=== PATIENT | female | born 1945 | race Caucasian/White ===

== ENCOUNTER 2024-12-11 09:04 | Outpatient (AMB) | payer MEDICARE, SELFPAY ==
--- NOTE | 2024-12-11 09:05 | A.OFFVIS_ITS ---
Vital Signs 12/11/24 09:06 Height 5 ft 5 in Weight 202 lb 13.204 oz BMI 33.7 BP 110/70 Blood Pressure Location Lt brachial Position Sitting Pulse 54 Pulse Source Pulse Oximeter Pulse Oximetry (%) 93 Oxygen Delivery Method Room Air Intake Visit Reasons: Cough Drive In Theater Attendant Required: No Accompanied by: Self / Same As Patient Allergies Sulfa (Sulfonamide Antibiotics) Allergy (Unknown, Verified 12/11/24 09:07) other nikunj Allergy (Intermediate, Uncoded 12/11/24 09:07) Itching HPI Comments Details: The patient is here for pulmonary evaluation. The patient is a 79-year-old woman with a chronic cough. She has been coughing now for several months. She does have a history of exposure to tuberculosis as a child in addition to that she has had episodes of bronchitis and bronchopneumonia growing up. She was evaluated [facility]. She was ruled out for active tuberculosis. The patient has had imaging studies. Including a CT scan of the chest that I did appreciate back from 2023. I did personally review the images with evidence of hiatal hernia in addition to that haziness in the bases of the lungs. Also some evidence of chronic bronchitis. More recently in October 2024 the patient did have a chest x-ray which I personally reviewed demonstrating again the esophageal hernia and otherwise no acute disease noted. Blood work she has had as well. Her CBC only significant for increased neutrophil count suggesting the possibility of a smoldering infection. Her cough has gotten better overall. She has been on inhalers and they have been helpful. Overall she is doing okay. She did have an issue with her hip when this started happening. My s uspicion is that she was laying flutter with a hip issue and that was causing increased micro aspirations into the lungs. We did talk about the reflux diet. She will need a barium swallow in addition to that will perform pulmonary function studies. Will have her follow-up then. If the patient has any issues prior to this she will call for an earlier assessment. [facility] Medical History (Updated 12/11/24 @ 17:50 by Dariusz Espinosa MD) Reactive airway disease YRIS (obstructive sleep apnea) Hiatal hernia Chronic cough Social History (Updated 12/11/24 @ 09:13 by Mary Pichardo CMA) Patient Tobacco Use Status: Former Tobacco user Review of Systems Const Reports daytime sleepiness, Denies fever(s) and Reports snoring ENT Reports nasal congestion and Reports post nasal drip Card Denies chest pain Resp Reports chest congestion, Reports cough and Reports snoring GI Reports dyspepsia and Reports heartburn Musc Reports as per HPI Skin/Breast Denies rash Endo Reports no additional complaints Lee/Lymph Reports no additional complaints Physical Exam Vital Signs: Last Vital Signs Pulse 54 12/11/24 09:06 BP 110/70 12/11/24 09:06 Pulse Ox 93 12/11/24 09:06 Oxygen Delivery Method Room Air 12/11/24 09:06 BMI result Body Mass Index 33.7 Assessment & Plan Assessment & Plan (1) Chronic cough: Code(s): R05.3 - Chronic cough Category: Medical (2) Hiatal hernia: Code(s): K44.9 - Diaphragmatic hernia without obstruction or gangrene Category: Medical (3) YRIS (obstructive sleep apnea): Code(s): G47.33 - Obstructive sleep apnea (adult) (pediatric) Category: Medical (4) Reactive airway disease: Code(s): J45.909 - Unspecified asthma, uncomplicated Category: Medical Qualifiers: Asthma severity: moderate Asthma persistence: persistent Asthma complication type: uncomplicated Qualified Code(s): J45.40 - Moderate persistent asthma, uncomplicated Plan continue Advair HFA PFTs Barium swallow consider repeating PSG reflux diet sleep elevated F/U 2-3 months Coding Level of Care Code New Pt Level 4 (28916) Diagnoses Chronic cough R05.3 Hiatal hernia K44.9 YRIS (obstructive sleep apnea) G47.33 Moderate persistent reactive airway disease without complication J45.40 Asthma severity: moderate Asthma persistence: persistent Asthma complication type: uncomplicated Time Spent (min) 40
[2024-12-11 09:06] VITALS: BP 110/70; PULSE 54; O2SAT 93; BMI 33.7
--- OUTSIDE RECORDS SUMMARY | 2024-12-11 09:40 | XMS_ITS | Continuity of Care Document ---
Author Organization [facility] Demarco lt Address [address] [place] [id number]- Care Team Providers Care Agent Broker Name Role Phone Anne Marie LOVELL, Trey Guerrero Primary Care Physician [place] [facility] [place]24 [facility] Adult [address] [place] [address]- Attending Physician: Admtr, Kiarra Encounter Type: Triage Allergies, Adverse Reactions, Alerts Substance Criticality Severity Reaction Reaction Severity Status ibuprofen 1 Active acetaminophen Active mirtazapine urticaria Active sulfa drugs unknown Active NSAIDs due to Cirrhosis of liver Active 1side effect- cirrhosis- not to take Immunizations Given and Recorded Vaccine Date Status Refusal Reason influenza virus vaccine, inactivated 1 06/18/24 Gi lindsey influenza virus vaccine, inactivated 2 04/06/22 Gi lindsey influenza virus vaccine, inactivated 3 06/21/21 Gi lindsey influenza virus vaccine, inactivated 06/24/19 Give n influenza virus vaccine, inactivated 4 07/10/17 Gi lindsey influenza virus vaccine, inactivated 04/17/16 Give n influenza virus vaccine, inactivated 04/07/15 Give n influenza virus vaccine, inactivated 03/31/14 Give n influenza virus vaccine, inactivated 03/19/13 Give n hepatitis B adult vaccine 5 05/21/23 Given hepatitis B adult vaccine 04/21/19 Given hepatitis B adult vaccine 03/18/19 Given Hepatitis A Adult Vaccine 6 05/21/23 Given Hepatitis A Adult Vaccine 03/18/19 Given [id number] 12y+ bivalent booster vax 09/22/22 Recorded SARS-CoV-2 mRNA ([id number]) vax 09/28/21 Given SARS-CoV-2 (COVID-19) mRNA-1273 vaccine 05/20/21 R ecorded tetanus/diphtheria/pertussis, acel(Tdap) 12/01/20 Given SARS-CoV-2 (COVID-19) Ad26 vaccine 10/06/20 Record ed pneumococcal 13-valent vaccine 03/10/20 Recorded pneumococcal 13-valent vaccine 04/07/15 Given Influenza Virus Vaccine (oldterm) 03/10/20 Recorde d Influenza Virus Vaccine (oldterm) 07/26/09 Given Influenza Virus Vaccine (oldterm) 7 04/22/08 Given tetanus-diphtheria toxoids (Td) 03/08/18 Given Fluarix (oldterm) 04/04/12 Given Fluarix (oldterm) 04/06/11 Given Zostavax (oldterm) 12/20/11 Given pneumococcal 23-valent vaccine 04/06/11 Given Tet/Diphth/Acel, Pertussis (oldterm) 12/31/07 Give n Tetanus Toxoid Vaccine (oldterm) 07/02/97 Given 1Result Comment: [facility]:[id number] Screening checklist reviewed with patient. Negative for any contraindications. 2Result Comment: [facility]-[id number] 3Result Comment: [facility]-[id number] 4Result Comment: [07/10/2017] [facility]: [id number] 5Result Comment: LOWER VACCINE SITE ON LEFT ARM 6Result Comment: UPPER VACCINE STIE ON LEFT ARM 7Admin Note: declined Medications Aerochamber See Instructions, # 1 each, Maintenance, Use as directed with albuterol MDI Dx: COPD., 11/03/24 8:19:00 PM EDT, Supply, 165, cm, 10/31/24 8:41:00 EDT, Height, 92, kg, 10/31/24 8:41:00 EDT, Dry Weight Start Date: 11/03/24 Status: Ordered Quantity: 1.0 Unit: each Repeat number: 1 alendronate 70 mg oral tablet 1 tablet, By Mouth, Every week, # 12 tablet, 3 Refills, Maintenance, 08/15/24 4:29:00 PM [facility], [id number], 166, cm, 08/14/24 15:38:00 EST, Height, 99.5, kg, 10/03/23 16:18:00 EDT, Dry Weight Start Date: 08/15/24 Status: Ordered Quantity: 12.0 Unit: tablet Repeat number: 4 aspirin 81 mg oral delayed release tablet 81 mg, 1, tablet, By Mouth, Daily, # 30 tablet, Refills 0, Tot. Refills 0, Maintenance, 10/31/24 12:22:00 PM EDT, Do Not Route, Partial fill upon patient request if the prescription is for a schedule II opioid drug. Start Date: 10/31/24 Status: Ordered Quantity: 30.0 Unit: tablet Repeat number: 1 atorvastatin 80 mg oral tablet 1 tablet, By Mouth, Daily, # 90 tablet, 3 Refills, Maintenance, 03/22/24 7:27:00 AM EDT, [facility], 166, cm, 03/14/24 9:04:00 EDT, Height, 99.5, kg, 10/03/23 16:18:00 EDT, Dry Weight Start Date: 03/22/24 Status: Ordered Quantity: 90.0 Unit: tablet Repeat number: 4 buPROPion 300 mg/24 hours (XL) oral tablet, extended release 1 tablet, By Mouth, Daily, # 90 tablet, 3 Refills, Maintenance, 03/22/24 7:27:00 AM EDT, [facility], 166, cm, 03/14/24 9:04:00 EDT, Height, 99.5, kg, 10/03/23 16:18:00 EDT, Dry Weight Start Date: 03/22/24 Status: Ordered Quantity: 90.0 Unit: tablet Repeat number: 4 fluticasone-salmeterol 115 mcg-21 mcg inhalation aerosol with adapter 2 inhalation, Inhalation, 2 times a day, rinse mouth and throat after use, # 8 Gm, 0 Refills, Maintenance, 10/31/24 12:24:00 PM EDT, Aerosol, Partial fill upon patient request if the prescription is for a schedule II opioid drug. Start Date: 10/31/24 Status: Ordered Quantity: 8.0 Unit: g Repeat number: 1 gabapentin 100 mg oral capsule 100 mg, 1, capsule, By Mouth, 3 times a day, # 90 capsule, Refills 5, Maintenance, 10/31/24 12:35:00 AM EDT, Partial fill upon patient request if the prescription is for a schedule II opioid drug. Start Date: 10/31/24 Status: Ordered Quantity: 90.0 Unit: capsule Repeat number: 1 Metoprolol Succinate ER 25 mg oral tablet, extended release 1, tablet, By Mouth, Daily, # 90 tablet, Refills 3, Tot. Refills 3, Maintenance, 03/22/24 7:27:00 AMEDT, Route to Pharmacy Electronically, [facility], 166, cm, 03/14/24 9:04:00 EDT, Height, 99.5, kg, 10/03/23 16:18:00 EDT, Dry Weight Start Date: 03/22/24 Status: Ordered Quantity: 90.0 Unit: tablet Repeat number: 4 QUEtiapine 25 mg oral tablet 25 mg, 1, tablet, By Mouth, Daily, # 30 tablet, Refills 0, Tot. Refills 0, Maintenance, 10/31/24 12:24:00 PM EDT, Do Not Route, Partial fill upon patient request if the prescription is for a schedule II opioid drug. Start Date: 10/31/24 Status: Ordered Quantity: 30.0 Unit: tablet Repeat number: 1 sertraline 50 mg oral tablet 1 tablet = 50 mg, By Mouth, Daily, # 90 tablet, 3 Refills, Maintenance, 08/14/24 4:19:00 PM EST, Tablet, [facility], Partial fill upon patient request if the prescription is for a schedule II opioid drug., 166, cm, 08/14/24 15:38:00 EST, Height, 99.5, kg, 10/03/23 16:18:00 EDT, Dry Weight Start Date: 08/14/24 Status: Ordered Quantity: 90.0 Unit: tablet Repeat number: 4 Problem List Condition Confirmation Course Effective Dates Status H ealth Status Informant Abdominal pain Confirmed Active Distal paresthesia Confirmed 04/06/22 Active Alkaline phosphatase raised/correcting vit d/normal 5 prime nuclt Confirmed Active Allergic rhinitis Confirmed 12/31/07 Active Loss of memory Confirmed Active Body mass index 30+ - obesity Confirmed Active Bronchiectasis Confirmed Active COPD (chronic obstructive pulmonary disease) Confirmed Active COPD (chronic obstructive pulmonary disease) Confirmed Active Cirrhosis us liver jun 2020 Confirmed 03/17/19 Active 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 Left ovarian cyst sonogram Confirmed 09/13/18 Active Cardiac LV ejection fraction 40-45% 2020 echo/ICD 2021 Confirmed 08/20/19 Active Oral lesion Confirmed Active Ex-cigarette smoker 2 Confirmed Active Long-term exposure involving bird droppings Confirmed Active Fall at home Confirmed Active Granuloma annulare 3 Confirmed Active H/O systemic steroid therapy Confirmed Active Bilateral hip pain Confirmed Active S/P right inguinal hernia repair rt Confirmed 10/13/20 Active Hx of total knee replacement bilteral 4, 5 Confirmed 06/24/12 Active Hyperhidrosis face;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 surgery Confirmed 05/21/07 Active HTN (hypertension) Confirmed Active Dermatitis Confirmed Active Left bundle-branch block Confirmed Active Lumbar spondylosis L5-S1 MRI 2018 11 Confirmed Active Adnexal mass Confirmed Active MIGRAINE 7 Confirmed Active Moderate major depression refer IBH Confirmed Active Obese class I Confirmed Active Obstructive sleep apnea 10.8 ahi Confirmed 12/24/19 Active OA (osteoarthritis) of hip right/ortho/injection 2021 Confirmed Active Osteopenia high frax alendronate Confirmed Active Plantar fascitis Confirmed Active Post-nasal drip Confirmed Active Moderate recurrent major depression Confirmed Active Thrombocytopenia Confirmed Active TMJ syndrome Confirmed Active Shakes Confirmed Active Vitamin D Deficiency Confirmed Active 1normal hep ABC,ferritin,iron 2Agrees to lung cancer screening with CAT scan low-dose 3DR linda 4sx planned 5djdmadvanced;chronic nsaids 6xray 75 years per patient Procedures Procedure Date Related Diagnosis Body Site Status Radiologic examination, spin e, lumbosacral; 2 or 3 views 1 12/24/12 Comp leted Dual-energy X-ray absorptiom etry (DXA), bone density study, 1 or more sites; axial skeleton (eg, hips, pelvis, spine) 2, 3 06/14/12 Completed Electrocardiogram, routine E CG with at least 12 leads; with interpretation and report 4 05/27/12 Completed 1severe spondyl;osis,djd,disc changes 2frax 18/1.7 neg 1.8 hip 3frax 87/0.7 4Ventricular Rate: 68 BPM Atrial Rate: 68 BPM P-R Interval: 170 ms QRS Duration: 146 ms Q-T Interval: 418 ms QTC Calculation(Bezet): 444 ms P [place]: 50 degrees R [place]: 33 degrees T [place]: 101 degrees Normal sinus rhythm Left bundle branch block Abnormal ECG When compared with ECG of 17-NOV-2010 11:54, Left bundle branch block is now Present Confirmed by CÉSAR MEYERS MD ([id number]) on 05/28/2012 10:38:47 AM Social History Social History Type Response Smoking Status Former smoker; Type: Cigarettes; Other: quit Jul 2016; Number of years: 35; Total pack years: 25; Started at age: 26; entered on: 06/11/17 Sex Sex Representation Female (finding) Implantable Device List Procedure Provider Procedure Date Device Type Site Repair Hernia Ventral Laparoscopic Rustam Blackburn MD 10/13/20 Unknown Ventricle Device Identifier Serial Number Lot or Batch Number Manufacturing Date Expiration Date Distinct Identification Code MRI Safety Implantable Status Assigning Authority Unknown [id number] Unknown 10/13/20 Unknown Unknown Active Unknown EKG study * Event Display: EKG Authored Date: * Event Display: EKG Authored Date: * Event Display: EKG Authored Date: Laboratory * Event Display: Laboratory Result Scanned Authored Date: * Event Display: Laboratory Result Scanned Authored Date: Cardiology Outpatient Note * Romelia Smith: PERFORM Event Display: Cardiology Note Office Authored Date: Radiology * Event Display: IR Special Procedures, Non-BH Authored Date: * Event Display: Radiology Result Scanned Authored Date: * Event Display: Radiology Result Scanned Authored Date: * Lisa Fowler: PERFORM Event Display: Radiology Results Scanned Authored Date: Patient Care team information Care Team Personnel Name: Janneth Car RN Position: [facility] RN Member Role: Primary Care Nurse Name: Teri Bourgeois NP Position: [facility] PCO Associate Professional Member Role: Lifetime Consulting Provider Address: [address] [place] [address] Telecom: Name: Lida Plata RN Position: [facility] RN Member Role: Primary Care Nurse Name: Lauren Delgado RN Position: [facility] RN Member Role: Primary Care Nurse Name: Merry Pardo RN Position: [facility] RN Member Role: Primary Care Nurse Name: Trey Kenney MD Position: [facility] Physician - Primary Care Member Role: PCP Address: [address] [place] [address]- Telecom: Name: Manny Caceres RN Position: [facility] RN Member Role: Primary Care Nurse Name: Mine Cabrera RN Position: [facility] SN RN Member Role: Primary Care Nurse Name: Nuria Chung RN Position: [facility] RN Member Role: Primary Care Nurse Name: Serena Marley RN Position: [facility] RN Member Role: Primary Care Nurse Name: Rama Linda RN Position: [facility] SN RN Member Role: Primary Care Nurse Name: Antony Olivia RN Position: [facility] RN Member Role: Primary Care Nurse Name: Marilou Mcnamara RN Position: [facility] RN Member Role: Primary Care Nurse Care Team Related Persons Name: STAN NUNO Name: ELLEN BOLTON Insurance Providers Guarantor name: JEFERSON GAN Cyphoma Plan Information #: 1 Payer: MEDICARE B Payer Identifier: Member Number: [id number] Group Number: Subscriber Identifier: [id number] Relationship to Subscriber: self Coverage Type: NA Coverage Verification Date: NA Telecom: NA Address: Health Plan Information #: 2 Payer: MEDEX SECONDARY ONLY Payer Identifier: Member Number: [id number] Group Number: Subscriber Identifier: [id number] Relationship to Subscriber: self Coverage Type: Medicare Other Coverage Verification Date: NA Telecom: NA Address:
== END 2024-12-11 09:40 | disposition home or self-care (01) ==
PROVIDERS: PCP Family Medicine; Referring Provider Family Medicine; Visit Provider Hospitalist
DX: R05.3 Chronic cough (principal); K44.9 Diaphragmatic hernia without obstruction or gangrene; G47.33 Obstructive sleep apnea (adult) (pediatric); J45.40 Moderate persistent asthma, uncomplicated
CPT/HCPCS: 99204

== ENCOUNTER → 2024-12-11 09:04 | Outpatient (BNVA) | payer MEDICARE, SELFPAY | PROVIDERS: PCP Family Medicine; Referring Provider Family Medicine; Visit Provider Hospitalist | DX: R05.3 Chronic cough (principal); J45.40 Moderate persistent asthma, uncomplicated; K44.9 Diaphragmatic hernia without obstruction or gangrene; G47.33 Obstructive sleep apnea (adult) (pediatric) | CPT/HCPCS: 99202 ==

== ENCOUNTER 2025-01-16 12:57 | Outpatient (REF) | payer MEDICARE, SELFPAY ==
--- OUTSIDE RECORDS SUMMARY | 2025-01-14 23:59 | XMS_ITS | Continuity of Care Document ---
Author Organization [facility] Demarco lt Address [address] [place] [address]- Care Team Providers Care Laborer Cheesemaking Name Role Phone Trey Kenney MD Primary Care Physician [phone] [place] [facility] [place]25 [facility] Adult [address] [place] [address]- Attending Physician: Trey Kenney MD Encounter Type: Pre Office Visit Allergies, Adverse Reactions, Alerts Substance Criticality Severity [...] Given Hepatitis A Adult Vaccine 03/18/19 Given [id number] 12y+ bivalent booster vax 09/22/22 Recorded SARS-CoV-2 mRNA (zavrqym-zxjk-kvfeb) vax 09/28/21 Given SARS-CoV-2 (COVID-19) mRNA-1273 vaccine [...] Toxoid Vaccine (oldterm) 07/02/97 Given 1Result Comment: [facility]:[id number] Screening checklist reviewed with patient. Negative for any contraindications. 2Result Comment: [facility]-[id number] 3Result Comment: [facility]-[id number] 4Result Comment: [07/10/2017] [facility]: [id number] 5Result Comment: LOWER VACCINE SITE ON LEFT ARM 6Result Comment: UPPER VACCINE STIE ON LEFT ARM 7Admin Note: declined Medications Advair HFA 115 mcg / 21 mcg 2 inhalation, Inhalation, 2 times a day, rinse mouth and throat after use, # 8 Gm, 3 Refills, Maintenance, 12/25/24 1:51:00 PM EDT, Aerosol, [facility] #[id number], Partial fill upon patient request if the prescription is for a schedule II opioid drug., 2 inhalation Inhalation 2 times a day,Instr:rinse mouth and throat after use, 165, cm, 12/22/24 9:10:00 EDT, Height, 92, kg, 10/31/24 8:41:00EDT, Dry Weight Start Date: 12/25/24 Status: Ordered Quantity: 8.0 Unit: g Repeat number: 4 Albuterol (Eqv-Ventolin HFA) 90 mcg/inh inhalation aerosol 2 inhalation = 180 mcg, Inhalation, Every 4 hours, PRN as needed for shortness of breath or wheezing, # 6.7 Gm, 5 Refills, Maintenance, 12/22/24 9:49:00 AM EDT, Aerosol, [id number], Partial fill upon patient request if the prescription is for a schedule II opioid drug., 2 inhalationInhalation Every 4 hours,PRN:as needed for shortness of breath or wheezing, 165, cm, 12/22/24 9:10:00 EDT, Height, 92, kg, 10/31/24 8:41:00 EDT, Dry Weight Start Date: 12/22/24 Status: Ordered Quantity: 6.7 Unit: g Repeat number: 6 alendronate 70 mg oral tablet 1 tablet, By Mouth, Every week, # 12 tablet, 3 Refills, Maintenance, 08/15/24 4:29:00 PM EST, [facility] #[id number], 166, cm, 08/14/24 15:38:00 EST, Height, 99.5, [...] Quantity: 90.0 Unit: tablet Repeat number: 4 Breo Ellipta 100 mcg-25 mcg/inh inhalation powder 1 inhalation, Inhalation, Daily, 0 Refills, Maintenance, 12/22/24 9:09:00 AM EDT, Partial fill upon patient request if the prescription is for a schedule II opioid drug. Start Date: 12/22/24 Status: Ordered Repeat number: 1 buPROPion 300 mg/24 hours (XL) oral tablet, [...] and throat after use, # 8 Gm, 3 Refills, Maintenance, 12/22/24 9:46:00 AM EDT, Aerosol, [facility] #[id number], Partial fill upon patient request if the prescription is for a schedule II opioid drug., 2 inhalation Inhalation 2 times a day,Instr:rinse mouth and throat after use, 165, cm, 12/22/24 9:10:00 EDT, Height, 92, kg, 10/31/24 8:41:00EDT, Dry Weight Start Date: 12/22/24 Status: Ordered Quantity: 8.0 Unit: g Repeat number: 4 gabapentin 100 mg oral capsule 100 mg, [...] Confirmed Active Cirrhosis us liver jun 2020 1 Confirmed 03/17/19 Active Craniofacial hyperhidrosis Confirmed 04/25/19 [...] 5djdmadvanced;chronic nsaids 6xray 75 years per patient Social History Social History Type Response Smoking [...] MRI Safety Implantable Status Assigning Authority Unknown [id number] Unknown 10/13/20 Unknown Unknown Active Unknown Patient Care team information Care Team Personnel Name: Janneth Car RN Position: [facility] SN RN Member Role: Primary Care Nurse Name: Teri Bourgeois NP Position: [facility] PCO Associate Professional Member Role: Lifetime Consulting Provider Address: [address] [place] [address] [facility] Telecom: Name: Lida Plata RN Position: [facility] SN RN Member Role: Primary Care Nurse Name: Lauren Delgado RN Position: [facility] OB RN Member Role: Primary Care Nurse Name: Merry Pardo RN Position: [facility] RN Member Role: Primary Care Nurse Name: Trey Kenney MD Position: [facility] Physician - Primary Care Member Role: PCP Address: [address] [place] [address] [facility] Telecom: Name: Manny Caceres RN Position: [facility] RN Member Role: Primary Care Nurse Name: Mine Cabrera RN Position: [facility] SN RN Member Role: Primary Care Nurse Name: Nuria Chung RN Position: [facility] RN Member Role: Primary Care Nurse Name: Serena Marley RN Position: [facility] RN Member Role: Primary Care Nurse Name: Rama Linda RN Position: [facility] SN RN Member Role: Primary Care Nurse Name: Antony Olivia RN Position: [facility] RN Member Role: Primary Care Nurse Name: Marilou Mcnamara RN Position: [facility] RN Member Role: Primary Care Nurse Care Team Related Persons Name: STAN NUNO Name: ELLEN BOLTON Insurance Providers Guarantor name: JEFERSON GAN WARSTUFF Plan Information #: 1 Payer: MEDICARE B Payer Identifier: LUBNA Member Number: [id number] Group Number: Subscriber Identifier: [id number] Relationship to Subscriber: self Coverage Type: NA Coverage Verification Date: Telecom: NA Address: Health Plan Information #: 2 Payer: MEDEX SECONDARY ONLY Payer Identifier: LUBNA Member Number: [id number] Group Number: Subscriber Identifier: [id number] Relationship to Subscriber: self Coverage Type: Medicare Other Coverage Verification Date: Telecom: Address:
[2025-01-16 09:10] VITALS: PULSE 73; RESP 16; O2SAT 95
--- OUTSIDE RECORDS SUMMARY | 2025-01-16 12:59 | XMS_ITS | Encounter Summary ---
Author Organization [facility] Address [address] [place] [phone] Phone Care Team Providers Care Tanbark Laborer Name Role Phone Trey Kenney MD Primary Care Provider + Encounter Details Date Type Department Care Team (Late st Contact Info) Description 06/13/2024 Procedure Pass [facility], Ct Scan - [address] [address] Social History Tobacco Use Types Packs/Day Years Used Date Smoking Tobacco: Former Smokeless Tobacco: Never Alcohol Use Standard Drinks/Week Comments Yes 0 (1 standard drink = 0.6 oz pur e alcohol) rare Education Answer Date Recorded Are you interested in more education? Not on ashtyn e 10/27/2022 Are you concerned about learning? Not on file 10/27/2022 No 10/27/2022 No 10/27/2022 Digital Access Answer Date Recorded No 11/28/2022 No 11/28/2022 Reliable internet access at home? Not on file 11/28/2022 Device with a working camera? Not on file Intimate Partner Violence Answer Date R ecorded Are you denied basic needs s uch as food, clothing, or medical care? No 06/13/2024 In the past 12 months have y ou been in a relationship with a person who hurts, threatens, or tries to control you? No 06/13/2024 Are you denied basic needs s uch as food, clothing, or medical care? No 06/13/2024 In the past 12 months have y ou been in a relationship with a person who hurts, threatens, or tries to control you? No 06/13/2024 Comments Unknown Sex and Gender Information Value Date Recorded Sex Assigned at Not on file Legal Sex Female 9:43 AM EDT Gender Identity Not on file Sexual Orientation Not on file documented as of this encounter Functional Status * Calculated C-SSRS Risk Score (Lifetime/Recent) Answer Date of Assessment Author No Risk Indicated 06/13/2024 4:24 PM [place]osin [place] RN * Amelia Suicide Severity Rating Scale (Screener/Recent Self-Report) Question Answer Date of Assessment Author 1. Wish to be (Past 1 Month) No 024 4:24 PM [place] RN 2. Non-Specific Active Suici vivi Thoughts (Past 1 Month) No 06/13/2024 4:24 PM [place] RN 6. Suicidal Behavior (Lifetime) No 4:24 PM [place] RN documented as of this encounter Plan of Treatment Not on file documented as of this encounter Visit Diagnoses Not on filedocumented in this encounter Care Teams Tanbark Laborer Relationship Specialty Start Date End Date Trey Kenney MD [address] [place] [phone] PCP - General Family Medicine 06/13/24 documented as of this encounter Additional Source Comments The information contained in this document represents components of the legal health record. It is not the complete legal health record.[facility]
--- OUTSIDE RECORDS SUMMARY | 2025-01-16 12:59 | XMS_ITS | Clinical Summary ---
Author Organization [address] [facility] Address [address] [place] [address] Phone Care Team Providers Care Ehs Specialist Name Role Phone Kailee Kessler MD Primary Care Provider [phone] Social History Tobacco Use Types Packs/Day Years Used Date Smoking Tobacco: Never Assessed Comments Unknown Sex and Gender Information Value Date Recorded Sex Assigned at Female 09/01/2024 8:20 AM EST Legal Sex Female 11:39 AM EDT Gender Identity Female 09/01/2024 8:20 AM EST Sexual Orientation Straight 09/01/2024 8: 20 AM EST Plan of Treatment Health Maintenance Due Date Last Done Comments DTaP,Tdap,and Td Vaccines (1 - Tdap) 1965 Pneumococcal Vaccine: 50+ Ye ars (1 of 1 - PCV) 1996 Zoster Vaccines (1 of 2) 1996 RSV Immunization Adult Patie nts (1 - 1-dose 75+ series) 2021 COVID-19 Vaccine ( - 2023-2 5 season) 2024 Depression Screening 04/11/2024 Falls Risk Assessment 04/11/2024 Hepatitis C Screening 04/11/2024 Medicare Annual Wellness Visit 04/11/2024 Osteoporosis Screening (Bone Density Screening) 04/11/2024 Social Influencers of Health Screening 04/11/2024 Influenza Vaccine (#1) 2025 HIB Vaccines Aged Out No longer eligi ble based on patient's age to complete this topic HPV Vaccines Aged Out No longer eligi ble based on patient's age to complete this topic Hepatitis A Vaccines Aged Out No long er eligible based on patient's age to complete this topic Hepatitis B Vaccines Aged Out No long er eligible based on patient's age to complete this topic IPV Vaccines Aged Out No longer eligi ble based on patient's age to complete this topic MMR Vaccines Aged Out No longer eligi ble based on patient's age to complete this topic Meningococcal ACWY Vaccine Aged Out N o longer eligible based on patient's age to complete this topic Meningococcal B Vaccine Aged Out No l onger eligible based on patient's age to complete this topic RSV Immunization Patients Un edward 20 months Aged Out No longer eligible b ased on patient's age to complete this topic Varicella Vaccines Aged Out No longer eligible based on patient's age to complete this topic Insurance MEDICARE [facility] Care Teams Ehs Specialist Relationship Specialty Start Date End Date Kailee Kessler MD [address] [place] [address] PCP - General 05/01/1999
--- NOTE | 2025-01-16 13:43 | PFT_ITS ---
Flows: FEV1: 111 % of predicted at 2.25 L FVC: 124 % of predicted at 3.31 L FEV1/FVC: 68 % Bronchodilator response: Absent Volumes: Total lung capacity: 106 % of predicted at 5.34 L Residual volume: 83 % of predicted at 1.84 L Slow vital capacity: 129 % of predicted at 3.50 L Expiratory reserve volume: 76 % of predicted at 0.51 L Diffusion capacity: Normal Impression: Mild obstructive ventilatory defect with no bronchodilator response. MTDD
== END 2025-01-16 12:58 | disposition home or self-care (01) ==
LOC: HO.RESP 12:57
PROVIDERS: PCP Family Medicine; Visit Provider Hospitalist
DX: R05.3 Chronic cough (principal)
CPT/HCPCS: 94010; 94640; 94727; 94729

== ENCOUNTER → 2025-01-16 13:43 | Outpatient (BNV) | payer MEDICARE, SELFPAY | PROVIDERS: PCP Family Medicine; Visit Provider Internal Medicine Pulmonary Disease | DX: J44.9 Chronic obstructive pulmonary disease, unspecified (principal) | CPT/HCPCS: 94060; 94727; 94729 ==

== ENCOUNTER 2025-03-04 10:14 | Outpatient (AMB) | payer MEDICARE, SELFPAY ==
[2025-03-04 10:17] VITALS: BP 130/68; PULSE 50; O2SAT 95; BMI 33.7
--- NOTE | 2025-03-04 10:17 | A.OFFVIS_ITS ---
Vital Signs 03/04/25 10:17 Height 5 ft 5 in Weight 202 lb 13.204 oz BMI 33.7 BP 130/68 Blood Pressure Location Lt brachial Position Sitting Pulse 50 Pulse Source Pulse Oximeter Pulse Oximetry (%) 95 Oxygen Delivery Method Room Air Intake Visit Reasons: Cough Accompanied by: Self / Same As Patient Allergies Sulfa (Sulfonamide Antibiotics) Allergy (Unknown, Verified 03/04/25 10:26) other nikunj Allergy (Intermediate, Uncoded 12/11/24 09:07) Itching HPI Comments Details: The patient is a 79-year-old woman with a chronic cough. She has been coughing now for several months. She does have a history of exposure to tuberculosis as a child in addition to that she has had episodes of bronchitis and bronchopneumonia growing up. She was evaluated by [facility] believe [facility]. She was ruled out for active tuberculosis. The patient has had imaging studies. Including a CT scan of the chest that I did appreciate back from 2023. I did personally review the images with evidence of hiatal hernia in addition to that haziness in the bases of the lungs. Also some evidence of chronic bronchitis. More recently in October 2024 the patient did have a chest x-ray which I personally reviewed demonstrating again the esophageal hernia and otherwise no acute disease noted. Blood work she has had as well. Her CBC only significant for increased neutrophil count suggesting the possibility of a smoldering infection. Her cough has gotten better overall. She has been on inhalers and they have been helpful. Overall she is doing okay. She did have an issue with her hip when this started happening. My suspicion is that she was laying flutter with a hip issue and that was causing increased micro aspirations into the lungs. We did talk about the reflux diet. She will need a barium swallow in addition to that will perform pulmonary function studies. Will have her follow-up then. If the patient has any issues prior to this she will call for an earlier assessment. 03/04/2025 the patient is here for pulmonary follow-up visit. Overall the patient has been doing fair. Apparently she has been having falls. She recently fell and she went to [facility] where she was found to have rib fractures and also healing pelvic fractures. She has been very unsteady on her feet. She is not sure what is DuoNeb. She is having significant pleuritic pain. I will now currently on Dilaudid for pain control. She will try the Lidoderm patches well. She did have a CT scan at [facility] which I personally reviewed noting the rib fractures but no active pulmonary disease noted. The patient did undergo pulmonary function studies which I personally reviewed. Her PFTs do demonstrate a mild obstruction. Therefore she can continue on the Advair for now. The patient also has a rescue inhaler as needed. She also has likely some degree of sleep apnea but the patient has tried already and failed CPAP and she does not want to do what at this time. We did look at her meds and she is taking Neurontin. I did encourage her to stop taking the dose of during the daytime because it seems like it is causing it to be unsteady on her feet and drowsy. She can take the Neurontin just at nighttime for now until she follows up with the primary care. [facility] Medical History (Updated 03/04/25 @ 22:32 by Dariusz Espinosa MD) Rib fractures COPD (chronic obstructive pulmonary disease) Reactive airway disease YRIS (obstructive sleep apnea) Hiatal hernia Chronic cough Social History Patient Tobacco Use Status: Former Tobacco user Review of Systems Const Reports daytime sleepiness, Denies fever(s) and Reports snoring ENT Reports nasal congestion and Reports post nasal drip Card Reports chest pain Resp Reports chest congestion, Reports cough, Reports pain on inspiration, Reports pain with cough and Reports snoring GI Reports dyspepsia and Reports heartburn Musc Reports as per HPI, Reports abnormal gait, Reports myalgias, Reports arthralgias and Reports stiffness Skin/Breast Denies rash Neuro Reports abnormal gait Endo Reports no additional complaints Lee/Lymph Reports no additional complaints Physical Exam Vital Signs: Last Vital Signs Pulse 50 03/04/25 10:17 BP 130/68 03/04/25 10:17 Pulse Ox 95 03/04/25 10:17 Oxygen Delivery Method Room Air 03/04/25 10:17 BMI result Body Mass Index 33.7 Const General: comfortable and tired appearing HEENT Head: Yes normocephalic Eyes General: appearance normal, both eyes and all related structures Neck Neck: Yes supple Chest Chest palpation & inspection: tenderness rib Resp Effort & Inspection: normal respiratory effort Auscultation: diminished lung sounds Cardio Heart sounds: S1 normal heart sound present and S2 normal heart sound present GI Palpation (GI): Soft to palpation Skin General skin exam: no rashes or lesions noted Extrem General: Yes no clubbing, cyanosis or edema Assessment & Plan Assessment & Plan (1) Chronic cough: Code(s): R05.3 - Chronic cough Category: Medical (2) Hiatal hernia: Code(s): K44.9 - Diaphragmatic hernia without obstruction or gangrene Category: Medical (3) YRIS (obstructive sleep apnea): Code(s): G47.33 - Obstructive sleep apnea (adult) (pediatric) Category: Medical (4) Reactive airway disease: Code(s): J45.909 - Unspecified asthma, uncomplicated Category: Medical Qualifiers: Asthma complication type: uncomplicated Asthma persistence: persistent Asthma severity: moderate Qualified Code(s): J45.40 - Moderate persistent asthma, uncomplicated (5) Rib fractures: Code(s): S22.49XA - Multiple fractures of ribs, unspecified side, initial encounter for closed fracture Category: Medical Qualifiers: Encounter type: initial encounter Fracture type: closed Laterality: right Qualified Code(s): S22.41XA - Multiple fractures of ribs, right side, initial encounter for closed fracture (6) COPD (chronic obstructive pulmonary disease): Code(s): J44.9 - Chronic obstructive pulmonary disease, unspecified Category: Medical Qualifiers: COPD type: chronic bronchitis Chronic bronchitis type: simple Qualified Code(s): J41.0 - Simple chronic bronchitis Plan continue Advair HFA Barium swallow Overnight oximetry on RA reflux diet sleep elevated should take gabapentin only at night for now, unsteady and groggy on her feet ISS F/U 2-3 months Orders: Orders Overnight Pulse Oximetry Today J44.9 - Chronic obstructive pulmonary disease, unspecified Coding Level of Care Code Est Pt Level 4 (52232) Diagnoses Chronic cough R05.3 Hiatal hernia K44.9 YRIS (obstructive sleep apnea) G47.33 Moderate persistent reactive airway disease without complication J45.40 Asthma complication type: uncomplicated Asthma persistence: persistent Asthma severity: moderate Closed fracture of multiple ribs of right side, initial encounter S22.41XA Encounter type: initial encounter Fracture type: closed Laterality: right Simple chronic bronchitis J41.0 COPD type: chronic bronchitis Chronic bronchitis type: simple Time Spent (min) 17
--- OUTSIDE RECORDS SUMMARY | 2025-03-04 11:45 | XMS_ITS | Clinical Summary ---
Author Organization [facility] Address [address] [facility] [address] [place] [address] Phone Care Team Providers Care Transfer Engineer Name Role Phone Trey Kenney MD Primary Care Provider + Allergies Active Allergy Reactions Criticality Noted Date Comments Mirtazapine Rash Low 04/09/2019 Sulfa (Sulfonamide Antibiotics) Unknown 03/2019 Medications FLUoxetine (PROZAC) 20 MG capsule Take 20 mg by mouth daily. Active BUPROPION HCL ORAL Take 300 mg by mouth. Active oxybutynin (DITROPAN-XL) 10 MG 24 hr tablet Take 10 mg by mouth daily. Active alendronate (FOSAMAX) 70 MG tablet Take 70 mg by mouth every 7 days. Take in the morning with a full glass of water, on an empty stomach, and do not take anything else by mouth or lie down for the next 30 min. Active methocarbamol (ROBAXIN) 500 MG tablet Take 500 mg by mouth 4 (four) times a day. Active benzonatate (TESSALON) 100 MG capsule Take 100 mg by mouth 3 (three) times a day as needed for cough. Active predniSONE (DELTASONE) 20 MG tablet Take 20 mg by mouth daily with breakfast. Active crisaborole (EUCRISA) 2 % ointment Apply topically 2 (two) times a day. 100 g 1 9 Active Social History Tobacco Use Types Packs/Day Years [...] on file Sexual Orientation Not on file Last Filed Vital Signs Vital Sign Reading Time Taken Comments Blood Pressure 145/82 06/13/2024 6:35 PM EST Pulse 61 06/13/2024 6:35 PM EST Temperature 36.5 C (97.7 F) 06/13/2024 6:35 PM EST Respiratory Rate 16 06/13/2024 6:35 PM EST Oxygen Saturation 98% 06/13/2024 6:35 PM EST Inhaled Oxygen Concentration - - Weight 90.7 kg (200 lb) 06/13/2024 4:21 PM EST Height 165.1 cm (5' 5 ) 06/13/2024 4:21 PM EST Body Mass Index 33.28 06/13/2024 4:21 PM EST Plan of Treatment Health Maintenance Due Date Last Done Comments Adult Td,Tdap Booster 1946 LIPID PANEL 1946 DEPRESSION SCREENING 1958 SMOKING Hx and SMOKELESS TOB ACCO SCREENING 1959 HEPATITIS C SCREENING 1964 ZOSTER VACCINES (1 of 2) 1996 OSTEOPOROSIS SCREENING INITI AL (ONE-TIME) 2011 RSV VACCINE (1 - 1-dose 75+ series) 2021 PNEUMOCOCCAL VACCINES (50+ y ears) (2 of 2 - PPSV23) 03/10/2021 03/10/2020 INFLUENZA VACCINE (#1) 2025 03/10/2020 COVID-19 VACCINE (2 - 2024-2 6 season) 2025 10/06/2020 HEPATITIS A VACCINES Aged Out No long er eligible based on patient's age to complete this topic HIB VACCINES Aged Out No longer eligi ble based on patient's age to complete this topic MENINGOCOCCAL VACCINES (ACWY) Aged Out No longer eligible based on patient's age to complete this topic MENINGOCOCCAL VACCINES (B) Aged Out N o longer eligible based on patient's age to complete this topic Medical Devices Not on file Insurance MEDICARE PART A & B [employer] [place] [id number] MEDICARE PART A & B [employer] [place] [address] MEDICARE PART A & B [employer] MED[employer] SUPPLEMENT MEDICARE PART A & B [employer] MEDEX SUPPLEMENT MEDICARE PART A & B [employer] MEDEX SUPPLEMENT MEDICARE PART A & B [facility] MEDEX SUPPLEMENT MEDICARE PART A & B [employer] MEDEX SUPPLEMENT [facility] [place] [id number] MEDICARE PART A & B [employer] [place] [address] MEDICARE PART A & B [employer] SUPPLEMENT Care Teams Transfer Engineer Relationship Specialty Start Date End Date Trey Kenney MD [address] [place] [phone] PCP - General Family Medicine 06/13/24 Additional Source Comments The information contained in this document represents components of the legal health record. It is not the complete legal health record.[facility]
--- OUTSIDE RECORDS SUMMARY | 2025-03-04 11:45 | XMS_ITS | Encounter Summary ---
Author Organization [facility] Address [address] [place] [address] Care Team Providers Care Ornamental Brick Installer Name Role Phone Kailee Kessler MD Primary Care Provider [phone] Encounter Details Date Type Department Care Team (Late st Contact Info) Description 09/03/2024 Lab Requisition [facility] - Main Lab [address] [facility] [place] [address] Neelima Aldana MD [address] [place] [address] Encounter for other general examination Social History Tobacco Use Types Packs/Day Years Used Date Smoking Tobacco: Never Assessed Comments Unknown Sex and Gender Information Value Date Recorded Sex Assigned at Female 09/01/2024 8:20 AM EST Legal Sex Female 11:39 AM EDT Gender Identity Female 09/01/2024 8:20 AM EST Sexual Orientation Straight 09/01/2024 8: 20 AM EST documented as of this encounter Plan of Treatment Not on file documented as of this encounter Procedures Procedure Name Priority Date/Time Associated Diagnosis Comments CBC WITH AUTO DIFFERENTIAL Routine 09/03/2024 5:58 AM EST Encounter for other general examination CBC AND DIFFERENTIAL Routine 09/03/2024 5:58 AM EST Encounter for other general examination MAGNESIUM Routine 09/03/2024 5:58 AM EST Encounter for other general examination COMPREHENSIVE METABOLIC PANEL Routine 09/03/2024 5:58 AM EST Encounter for other general examination documented in this encounter Results * (ABNORMAL) CBC auto differential (09/03/2024 5:58 AM EST) WBC 3.8(L) 4.8 - 10.8 K/mcL LAB HEMETOLOGY METHOD 09/03/2024 11:07 AM [facility] RBC 4.20 3.80 - 4.80 M/mcL LAB HEMETOLOGY METHOD 09/03/2024 11:07 AM [facility] Hemoglobin 12.9 11.5 - 16.0 g/dL LAB HEMETOLOGY METHOD 09/03/2024 11:07 AM [facility] Hematocrit 39.9 35.0 - 47.0 % LAB HEMETOLOGY METHOD 09/03/2024 11:07 AM [facility] MCV 95.5 79.0 - 98.0 FL LAB HEMETOLOGY METHOD 09/03/2024 11:07 AM [facility] MCH 30.9 27.0 - 32.0 pcg LAB HEMETOLOGY METHOD 09/03/2024 11:07 AM [facility] MCHC 32.3 32.0 - 37.0 g/dL LAB HEMETOLOGY METHOD 09/03/2024 11:07 AM [facility] RDW 15.3(H) 11.0 - 15.0 % LAB HEMETOLOGY METHOD 09/03/2024 11:07 AM [facility] Platelets 110(L) 130 - 400 K/mcL LAB HEMETOLOGY METHOD 09/03/2024 11:07 AM [facility] MPV 11.5(H) 7.0 - 11.0 FL LAB HEMETOLOGY METHOD 09/03/2024 11:07 AM [facility] NRBC 0.0 <1.0 % LAB HEMETOLOGY METHOD 09/03/2024 11:07 AM [facility] NRBC Absolute 0.00 <0.10 K/mcL LAB HEMETOLOGY METHOD 09/03/2024 11:07 AM [facility] Neutrophils Relative 63.7 % LAB HEMETOLOGY METHOD 09/03/2024 11:07 AM [facility] Lymphocytes Relative 20.4 % LAB HEMETOLOGY METHOD 09/03/2024 11:07 AM [facility] Monocytes Relative 10.1 % LAB HEMETOLOGY METHOD 09/03/2024 11:07 AM [facility] Eosinophils Relative 4.5 % LAB HEMETOLOGY METHOD 09/03/2024 11:07 AM [facility] Basophils Relative 1.3 % LAB HEMETOLOGY METHOD 09/03/2024 11:07 AM [facility] Immature Granulocytes Relative 0.0 % LAB HEMETOLOGY METHOD 09/03/2024 11:07 AM [facility] Neutrophils Absolute 2.40 1.50 - 7.00 K/mcL LAB HEMETOLOGY METHOD 09/03/2024 11:07 AM [facility] Lymphocytes Absolute 0.77(L) 1.00 - 5.00 K/mcL LAB HEMETOLOGY METHOD 09/03/2024 11:07 AM [facility] Monocytes Absolute 0.38 0.20 - 1.00 K/mcL LAB HEMETOLOGY METHOD 09/03/2024 11:07 AM [facility] Eosinophils Absolute 0.17 0.00 - 0.50 K/mcL LAB HEMETOLOGY METHOD 09/03/2024 11:07 AM [facility] Basophils Absolute 0.05 0.00 - 0.20 K/mcL LAB HEMETOLOGY METHOD 09/03/2024 11:07 AM [facility] Immature Granulocytes Absolute 0.00 0.00 - 0.03 K/mcL LAB HEMETOLOGY METHOD 09/03/2024 11:07 AM EST [facility] Blood Venous blood specimen / Unknown Venipuncture / Unknown 09/03/2024 5:58 AM EST 09/03/2024 10:30 AM EST Neelima Aldana MD LAB BLOOD ORDERABLES Final Resu lt Performing Organization Address City/[facility]/ZIP Co de Phone Number [facility] [address] [place] [address], [place] [phone] * Magnesium (09/03/2024 5:58 AM EST) Magnesium 2.1 1.9 - 2.6 mg/dL LAB CHEMISTRY METHOD 09/03/2024 12:15 PM [facility] Blood Venous blood specimen / Unknown Venipuncture / Unknown 09/03/2024 5:58 AM EST 09/03/2024 10:30 AM EST Neelima Aldana MD LAB BLOOD ORDERABLES Final Resu lt Performing Organization Address City/[facility]/ZIP Co de Phone Number [facility] [address] [place] [address], [place] [phone] * (ABNORMAL) Comprehensive metabolic panel (09/03/2024 5:58 AM EST) Sodium 142 133 - 145 mmol/L LAB CHEMISTRY METHOD 09/03/2024 12:17 PM [facility] Potassium 3.9 3.5 - 5.5 mmol/L LAB CHEMISTRY METHOD 09/03/2024 12:17 PM [facility] Chloride 107 96 - 110 mmol/L LAB CHEMISTRY METHOD 09/03/2024 12:17 PM [facility] CO2 28 21 - 32 mmol/L LAB CHEMISTRY METHOD 09/03/2024 12:17 PM [facility] Anion Gap 7 3 - 11 LAB CHEMISTRY METHOD 09/03/2024 12:17 PM [facility] Glucose 87 70 - 100 mg/dL LAB CHEMISTRY METHOD 09/03/2024 12:17 PM [facility] BUN 19 5 - 25 mg/dL LAB CHEMISTRY METHOD 09/03/2024 12:17 PM [facility] Creatinine 0.61 0.50 - 1.10 mg/dL LAB CHEMISTRY METHOD 09/03/2024 12:17 PM [facility] eGFR 92 >=60 mL/min/1. 73m2 LAB CHEMISTRY METHOD 09/03/2024 12:17 PM [facility] Comment:Calculation based on the Chronic Kidney Disease Epidemiology Collaboration (CKD-EPI) equation refit without adjustment for race. BUN/Creatinine Ratio 31.1 LAB CHEMISTRY METHOD 09/03/2024 12:17 PM [facility] Calcium 9.4 8.5 - 10.5 mg/dL LAB CHEMISTRY METHOD 09/03/2024 12:17 PM [facility] AST (SGOT) 29 10 - 42 unit/L LAB CHEMISTRY METHOD 09/03/2024 12:17 PM [facility] ALT (SGPT) 28 10 - 60 unit/L LAB CHEMISTRY METHOD 09/03/2024 12:17 PM [facility] Alkaline Phosphatase 96 42 - 121 unit/L LAB CHEMISTRY METHOD 09/03/2024 12:17 PM [facility] Total Protein 5.5(L) 6.0 - 8.0 g/dL LAB CHEMISTRY METHOD 09/03/2024 12:17 PM [facility] Albumin 3.1(L) 3.2 - 5.0 g/dL LAB CHEMISTRY METHOD 09/03/2024 12:17 PM [facility] Total Bilirubin 0.7 0.0 - 1.4 mg/dL LAB CHEMISTRY METHOD 09/03/2024 12:17 PM [facility] Blood Venous blood specimen / Unknown Venipuncture / Unknown 09/03/2024 5:58 AM EST 09/03/2024 10:30 AM EST us Neelima Aldana MD LAB BLOOD ORDERABLES Final Resu lt [facility] [address] [place] [address], documented in this encounter Visit Diagnoses Diagnosis Encounter for other general examination documented in this encounter Care Teams Ornamental Brick Installer Relationship Specialty Start Date End Date Kailee Kessler MD [address] [place] [address] PCP - General 05/01/1999 documented as of this encounter
--- OUTSIDE RECORDS SUMMARY | 2025-03-04 11:45 | XMS_ITS | Clinical Summary ---
Author Organization [address] [facility] Address [address] [place] [address] Phone Care Team Providers Care Office Support Name Role Phone Kailee Kessler MD Primary Care Provider [phone] Social History Tobacco Use Types Packs/Day Years [...] nts (1 - 1-dose 75+ series) 2021 Falls Risk Assessment 04/11/2024 Hepatitis C Screening 04/11/2024 Medicare Annual Wellness Visit 04/11/2024 Osteoporosis Screening (Bone Density Screening) 04/11/2024 Social Influencers of Health Screening 04/11/2024 Depression Screening 07/02/2024 COVID-19 Vaccine ( - 2023-2 5 season) 2025 Influenza Vaccine (#1) 2025 HIB Vaccines Aged [...] age to complete this topic Insurance MEDICARE [facility] Care Teams Office Support Relationship Specialty Start Date End Date Kailee Kessler MD [address] [place] [address] PCP - General 05/01/1999
--- OUTSIDE RECORDS SUMMARY | 2025-03-04 11:45 | XMS_ITS | Encounter Summary ---
Author Organization [facility] Address [address] [place] [address] Phone Care Team Providers Care Spindle Repairer Name Role Phone Trey Kenney MD Primary Care Provider + Encounter Details Date Type Department Care Team (Late st Contact Info) Description 06/13/2024 Procedure Pass [facility], Ct Scan - [address] [address] Social History Tobacco Use Types Packs/Day Years [...] 06/13/2024 4:24 PM Tosin [place] RN * [place] Suicide Severity Rating Scale (Screener/Recent Self-Report) Question [...] on filedocumented in this encounter Care Teams Spindle Repairer Relationship Specialty Start Date End Date Trey Kenney MD [address] [place] [id number] PCP - General Family Medicine 06/13/24 documented as of this encounter Additional Source Comments The information contained in this document represents components of the legal health record. It is not the complete legal health record.[facility]
--- OUTSIDE RECORDS SUMMARY | 2025-03-04 11:45 | XMS_ITS | Encounter Summary ---
Author Organization [facility] Address [address] [place] [address] Phone Care Team Providers Care Hand Winder Name Role Phone Trey Kenney MD Primary Care Provider + Encounter Details Date Type Department Care Team (Late st Contact Info) Description 06/13/2024 Procedure Pass [facility], Ct Scan - [address] [address] Social History Tobacco Use Types Packs/Day Years [...] 06/13/2024 4:24 PM Tosin [place] RN * [place] Suicide Severity Rating Scale (Screener/Recent Self-Report) Question [...] on filedocumented in this encounter Care Teams Hand Winder Relationship Specialty Start Date End Date Trey Kenney MD [address] [place] [phone] PCP - General Family Medicine 06/13/24 documented as of this encounter Additional Source Comments The information contained in this document represents components of the legal health record. It is not the complete legal health record.[facility]
--- OUTSIDE RECORDS SUMMARY | 2025-03-04 11:45 | XMS_ITS | Encounter Summary ---
Author Organization [facility] Address [address] [place] [address] Care Team Providers Care Corn Cutter Operator Name Role Phone Kailee Kessler MD Primary Care Provider [phone] Encounter Details Date Type Department Care Team (Late st Contact Info) Description 09/13/2024 Lab Requisition [facility] - Main Lab [address] [facility] [place] [address] Ny Gutiérrez MD [address] [place] [phone] Encounter for other general examination Social History [...] Diagnosis Comments CBC WITH AUTO DIFFERENTIAL Routine 09/13/2024 5:38 AM EDT Encounter for other general examination CBC AND DIFFERENTIAL Routine 09/13/2024 5:38 AM EDT Encounter for other general examination MAGNESIUM Routine 09/13/2024 5:38 AM EDT Encounter for other general examination COMPREHENSIVE METABOLIC PANEL Routine 09/13/2024 5:38 AM EDT Encounter for other general examination documented in this encounter Results * (ABNORMAL) CBC auto differential (09/13/2024 5:38 AM EDT) WBC 3.9(L) 4.8 - 10.8 K/mcL LAB HEMETOLOGY METHOD 09/13/2024 10:14 AM [facility] RBC 4.60 3.80 - 4.80 M/mcL LAB HEMETOLOGY METHOD 09/13/2024 10:14 AM [facility] Hemoglobin 14.4 11.5 - 16.0 g/dL LAB HEMETOLOGY METHOD 09/13/2024 10:14 AM [facility] Hematocrit 43.9 35.0 - 47.0 % LAB HEMETOLOGY METHOD 09/13/2024 10:14 AM [facility] MCV 94.8 79.0 - 98.0 FL LAB HEMETOLOGY METHOD 09/13/2024 10:14 AM [facility] MCH 31.1 27.0 - 32.0 pcg LAB HEMETOLOGY METHOD 09/13/2024 10:14 AM [facility] MCHC 32.8 32.0 - 37.0 g/dL LAB HEMETOLOGY METHOD 09/13/2024 10:14 AM [facility] RDW 15.9(H) 11.0 - 15.0 % LAB HEMETOLOGY METHOD 09/13/2024 10:14 AM [facility] Platelets 105(L) 130 - 400 K/mcL LAB HEMETOLOGY METHOD 09/13/2024 10:14 AM [facility] MPV 11.5(H) 7.0 - 11.0 FL LAB HEMETOLOGY METHOD 09/13/2024 10:14 AM [facility] NRBC 0.0 <1.0 % LAB HEMETOLOGY METHOD 09/13/2024 10:14 AM [facility] NRBC Absolute 0.00 <0.10 K/mcL LAB HEMETOLOGY METHOD 09/13/2024 10:14 AM [facility] Neutrophils Relative 65.2 % LAB HEMETOLOGY METHOD 09/13/2024 10:14 AM [facility] Lymphocytes Relative 22.5 % LAB HEMETOLOGY METHOD 09/13/2024 10:14 AM [facility] Monocytes Relative 7.9 % LAB HEMETOLOGY METHOD 09/13/2024 10:14 AM [facility] Eosinophils Relative 3.3 % LAB HEMETOLOGY METHOD 09/13/2024 10:14 AM [facility] Basophils Relative 0.8 % LAB HEMETOLOGY METHOD 09/13/2024 10:14 AM [facility] Immature Granulocytes Relative 0.3 % LAB HEMETOLOGY METHOD 09/13/2024 10:14 AM [facility] Neutrophils Absolute 2.55 1.50 - 7.00 K/mcL LAB HEMETOLOGY METHOD 09/13/2024 10:14 AM [facility] Lymphocytes Absolute 0.88(L) 1.00 - 5.00 K/mcL LAB HEMETOLOGY METHOD 09/13/2024 10:14 AM [facility] Monocytes Absolute 0.31 0.20 - 1.00 K/mcL LAB HEMETOLOGY METHOD 09/13/2024 10:14 AM [facility] Eosinophils Absolute 0.13 0.00 - 0.50 K/mcL LAB HEMETOLOGY METHOD 09/13/2024 10:14 AM [facility] Basophils Absolute 0.03 0.00 - 0.20 K/mcL LAB HEMETOLOGY METHOD 09/13/2024 10:14 AM [facility] Immature Granulocytes Absolute 0.01 0.00 - 0.03 K/mcL LAB HEMETOLOGY METHOD 09/13/2024 10:14 AM EDT [facility] Blood Venous blood specimen / Unknown Venipuncture / Unknown 09/13/2024 5:38 AM EDT 09/13/2024 8:57 AM EDT Ny Gutiérrez MD LAB BLOOD ORDERABLES Final Res ult Performing Organization Address City/[facility]/ZIP Co de Phone Number [facility] [address] [place] [address], [place] [phone] * Magnesium (09/13/2024 5:38 AM EDT) Magnesium 2.2 1.9 - 2.6 mg/dL LAB CHEMISTRY METHOD 09/13/2024 10:32 AM EDT [facility] Blood Venous blood specimen / Unknown Venipuncture / Unknown 09/13/2024 5:38 AM EDT 09/13/2024 8:57 AM EDT Ny Gutiérrez MD LAB BLOOD ORDERABLES Final Res ult Performing Organization Address [facility]/ZIP Co de Phone Number [facility] [address] [place] [address], [place] [phone] * (ABNORMAL) Comprehensive metabolic panel (09/13/2024 5:38 AM EDT) Sodium 137 133 - 145 mmol/L LAB CHEMISTRY METHOD 09/13/2024 10:32 AM EDT [facility] Potassium 3.9 3.5 - 5.5 mmol/L LAB CHEMISTRY METHOD 09/13/2024 10:32 AM EDT [facility] Chloride 101 96 - 110 mmol/L LAB CHEMISTRY METHOD 09/13/2024 10:32 AM EDT [facility] CO2 30 21 - 32 mmol/L LAB CHEMISTRY METHOD 09/13/2024 10:32 AM [facility] Anion Gap 6 3 - 11 LAB CHEMISTRY METHOD 09/13/2024 10:32 AM [facility] Glucose 77 70 - 100 mg/dL LAB CHEMISTRY METHOD 09/13/2024 10:32 AM [facility] BUN 17 5 - 25 mg/dL LAB CHEMISTRY METHOD 09/13/2024 10:32 AM [facility] Creatinine 0.69 0.50 - 1.10 mg/dL LAB CHEMISTRY METHOD 09/13/2024 10:32 AM [facility] eGFR 89 >=60 mL/min/1. 73m2 LAB CHEMISTRY METHOD 09/13/2024 10:32 AM [facility] Comment:Calculation based on the Chronic Kidney Disease Epidemiology Collaboration (CKD-EPI) equation refit without adjustment for race. BUN/Creatinine Ratio 24.6 LAB CHEMISTRY METHOD 09/13/2024 10:32 AM [facility] Calcium 8.9 8.5 - 10.5 mg/dL LAB CHEMISTRY METHOD 09/13/2024 10:32 AM [facility] AST (SGOT) 26 10 - 42 unit/L LAB CHEMISTRY METHOD 09/13/2024 10:32 AM [facility] ALT (SGPT) 32 10 - 60 unit/L LAB CHEMISTRY METHOD 09/13/2024 10:32 AM [facility] Alkaline Phosphatase 150(H) 42 - 121 unit/L LAB CHEMISTRY METHOD 09/13/2024 10:32 AM [facility] Total Protein 5.9(L) 6.0 - 8.0 g/dL LAB CHEMISTRY METHOD 09/13/2024 10:32 AM [facility] Albumin 3.2 3.2 - 5.0 g/dL LAB CHEMISTRY METHOD 09/13/2024 10:32 AM [facility] Total Bilirubin 0.8 0.0 - 1.4 mg/dL LAB CHEMISTRY METHOD 09/13/2024 10:32 AM EDT [facility] Blood Venous blood specimen / Unknown Venipuncture / Unknown 09/13/2024 5:38 AM EDT 09/13/2024 8:57 AM EDT us Ny Gutiérrez MD LAB BLOOD ORDERABLES Final Res ult [facility] [address] [place] [address], [place] [phone] documented in this encounter Visit Diagnoses Diagnosis Encounter for other general examination documented in this encounter Care Teams Corn Cutter Operator Relationship Specialty Start Date End Date Kailee Kessler MD [address] [place] [address] PCP - General 05/01/1999 documented as of this encounter
--- OUTSIDE RECORDS SUMMARY | 2025-03-04 11:45 | XMS_ITS ---
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 She was seen on January 29, 2025, at which time she was treated with Intramuscular Kenalog.The patient presents for focused visit.Today the patient reports: Modifying factors: unchanged by therapy. Quality: no swelling, no drainage, no redness, itching, no pain, and not malodorous. Timing:constant.Interval History: Patient reports no improvement following kenalog injection, patient states scalp and neck are very itchy, unsure if related to GA. Allergies, Adverse Reactions, Alerts Substance RxNorm Reaction(s) Severity Status Start Da te Sulfa (Sulfonamide Antibiotics) unspecif ied active mirtazapine unspecified active Medications Medication Generic Name RxNorm Strength Strength Unit Route Dose Dose Form Frequency Date Started Date Ended Status Indication Sig betamethaso ne dipropionat e betameth asone dipropio matilde 918414 0.05 % Topica l ointm ent 02/10/20 20 suspend ed Appl y BID on affe cted area s on hand s prn betamethaso ne dipropionat e betameth asone dipropio matilde 594412 0.05 % Topica l lotio n 03/03/20 25 active Appl y BID PRN to scal p itch betamethaso ne, augmented betameth asone, augmente d 261674 0.05 % Topica l ointm ent 07/13/19 21 suspend ed Appl y on affe cted area on the hand twic e a day as need ed. triamcinolo ne acetonide triamcin olone acetonid e 2771846 0.1 % Topica l thin layer cream bid 02/14/20 23 active Appl y to affe cted area s of ecze ma BID for up to 2 week s. Avoi d face and groi n. albuterol sulfate 2195068 90 mcg/actua tion Inhala tion 1 HFA Aeros ol Inhal er prn active Adult Low Dose Aspirin aspirin 81 mg Oral 1 table t, delay ed relea se (ente brett coatmedina d) qd active alendronate 891835 70 mg Oral 1 tabl e t weekly active atorvastati n 465130 80 mg Oral 1 table t qd active bupropion HCl 268194 300 mg Oral 1 Table t, Exten ded Relea se 24 hr qd active Dilaudid hydromor phone 1 mg/mL Oral 1 liqui d 4x daily active doxycycline hyclate doxycycl ine hyclate 9915228 100 mg Oral capsu le 05/10/20 21 suspend ed Take 1 tabl et PO BID with food for 10 days . Do not take befo re bedt cody. gabapentin gabapent in 100 mg Oral 1 capsu le TID active metoprolol succinate 887095 25 mg Oral 1 Table t, Exten ded Relea se 24 hr qd active quetiapine quetiapi ne 25 mg Oral table t suspend ed Dupixent Pen dupiluma b 3206934 300 mg/2 mL Subcut aneous pen injec tor 06/05/[address] 1 pen need le SC Q 2 week s Dupixent Syringe dupiluma b 7860634 300 mg/2 mL Subcut aneous 1 syrin ge QOW 08/10/[address] 1 syri nge SC ever y othe r week . Tabitha ent requ ests jaffe ge from pen need le to syri nge. ALENDRONATE SODIUM 70 MG TABS NULL 12/20/19 19 active ALENDRONATE SODIUM 70 MG TABS NULL 12/20/19 19 active ALENDRONATE SODIUM 70 MG TABS NULL 02/29/20 18 active ALENDRONATE SODIUM 70 MG TABS NULL 02/14/20 18 active ALENDRONATE SODIUM 70 MG TABS NULL 02/29/20 18 active ALENDRONATE SODIUM 70 MG TABS NULL 02/14/20 18 active ALENDRONATE SODIUM 70 MG TABS NULL 12/22/19 16 active ALENDRONATE SODIUM 70 MG TABS NULL 10/20/19 16 active ALENDRONATE SODIUM 70 MG TABS NULL 12/22/19 16 active ALENDRONATE SODIUM 70 MG TABS NULL 10/20/19 16 active ALENDRONATE SODIUM 70 MG TABS NULL 10/20/19 16 active Ambien NULL 08/19/19 14 active Ambien CR NULL 09/18/19 14 active Amoxicillin NULL 12/05/19 13 active AMOXICILLIN 500 MG CAPS NULL 12/01 19 active AMOXICILLIN 500 MG TABS NULL 02/01 18 active AMOXICILLIN 500 MG TABS NULL 01/30 11/18 18 active AMOXICILLIN 500 MG TABS NULL 02/01 18 active AMOXICILLIN 500 MG TABS NULL 01/30 11/18 18 active AMOXICILLIN 500 MG TABS NULL 02/01 18 active AMOXICILLIN 500 MG TABS NULL 01/30 11/18 18 active AMOXICILLIN /CLAVULANAT E POTASSIUM 875-125 MG TABS NULL 12/20/19 19 active NULL 05/24/20 10 active Betamethaso ne Dipropionat e NULL 03/18/20 09 active BUPROPION HCL XL 150 MG TB24 NULL 12/22/19 16 active BUPROPION HCL XL 150 MG TB24 NULL 12/22/19 16 suspend ed BUPROPION HCL XL 150 MG TB24 NULL 10/20/19 16 active BUPROPION HCL XL 150 MG TB24 NULL 12/22/19 16 active BUPROPION HCL XL 150 MG TB24 NULL 10/20/19 16 active BUPROPION HCL XL 150 MG TB24 NULL 12/22/19 16 active BUPROPION HCL XL 150 MG TB24 NULL 10/20/19 16 active BUPROPION HCL XL 150 MG TB24 NULL 10/20/19 16 active BUPROPION HCL XL 300 MG TB24 NULL 02/14/20 18 active BUPROPION HCL XL 300 MG TB24 NULL 02/29/20 18 active BUPROPION HCL XL 300 MG TB24 NULL 02/14/20 18 active BUPROPION HCL XL 300 MG TB24 NULL 02/14/20 18 active BUPROPION HCL XL 300 MG TB24 NULL 02/14/20 18 active BUPROPION HYDROCHLORI DE ER (XL) 300 MG TB24 NULL 12/01 19 active BUPROPION HYDROCHLORI DE ER (XL) 300 MG TB24 NULL 12/01 19 active BUPROPION HYDROCHLORI DE XL 300 MG TB24 NULL 02/29/20 18 active BUPROPION HYDROCHLORI DE XL 300 MG TB24 NULL 02/29/20 18 active BUPROPION HYDROCHLORI DE XL 300 MG TB24 NULL 02/29/20 18 active Butalbital- APAP-Caffei ne NULL 04/10/20 14 active cancel NULL 12/20/19 19 suspend ed CIPROFLOXAC IN HYDROCHLORI DE 500 MGTABS NULL 12/20/19 19 active CLARAVIS 20 MG CAPS NULL 02/29/20 18 active Clobetasol Propionate NULL 09/17 13 active Cutar NULL 03/18/20 09 active CYCLOSPORIN E 100MG (MOD) CAPS NULL 05/07 15 suspend ed CYCLOSPORIN E MODIFIED 100 MG CAPS NULL 12/01 08/21 16 active DAPSONE 25 MG TABS NULL 12/22/19 16 active DAPSONE 25 MG TABS NULL 12/22/19 16 active DAPSONE 25 MG TABS NULL 10/20/19 16 active DAPSONE 25 MG TABS NULL 10/20/19 16 active DAPSONE 25MG TABLETS NULL 11/11/19 15 suspend ed Denavir NULL 04/10/20 14 suspend ed Diclofenac- Gabapentin- Lido NULL 02/14/20 18 suspend ed FLUCONAZOLE 150 MG TABS NULL 10/01 16 active FLUoxetine HCl NULL 04/10/20 14 active FLUoxetine HCl NULL 04/10/20 14 suspend ed FLUOXETINE HCL 20 MG TABS NULL 12/22/19 16 active FLUOXETINE HCL 20 MG TABS NULL 12/22/19 16 active FLUOXETINE HCL 20 MG TABS NULL 12/22/19 16 active FLUOXETINE HCL 20 MG TABS NULL 10/20/19 16 active FLUOXETINE HCL 20 MG TABS NULL 12/22/19 16 active FLUOXETINE HCL 20 MG TABS NULL 10/20/19 16 active FLUOXETINE HCL 20 MG TABS NULL 12/22/19 16 active FLUOXETINE HCL 20 MG TABS NULL 10/20/19 16 active FLUOXETINE HCL 20 MG TABS NULL 10/20/19 16 active FLUOXETINE HCL 40 MG CAPS NULL 02/29/20 18 active FLUOXETINE HCL 40 MG CAPS NULL 02/29/20 18 active FLUOXETINE HCL 40 MG CAPS NULL 02/29/20 18 active FLUOXETINE HCL 40 MG CAPS NULL 02/14/20 18 active FLUOXETINE HCL 40 MG CAPS NULL 02/29/20 18 active FLUOXETINE HCL 40 MG CAPS NULL 02/14/20 18 active FLUOXETINE HCL 40 MG CAPS NULL 02/29/20 18 active FLUOXETINE HCL 40 MG CAPS NULL 02/14/20 18 active FLUOXETINE HCL 40 MG CAPS NULL 02/29/20 18 active FLUOXETINE HCL 40 MG CAPS NULL 02/14/20 18 active FLUOXETINE HCL 40 MG CAPS NULL 02/29/20 18 active FLUOXETINE HCL 40 MG CAPS NULL 02/14/20 18 active FLUOXETINE HYDROCHLORI DE 20 MG TABS NULL 12/20/19 19 active Hydrocodone -Acetaminop hen NULL 04/10/20 14 active Hydrocodone -Acetaminop hen NULL 04/10/20 14 active HYDROXYCHLO ROQUINE 200MG TABLETS NULL 04/10/20 14 suspend ed HYDROXYCHLO ROQUINE SULFATE 200 MG TABS NULL 02/14/20 18 active HYDROXYCHLO ROQUINE SULFATE 200 MG TABS NULL 12/22/19 16 active HYDROXYCHLO ROQUINE SULFATE 200 MG TABS NULL 10/20/19 16 active HydrOXYzine Pamoate NULL 04/10/20 14 active IBUPROFEN 800 MG TABS NULL 02/01 18 active IBUPROFEN 800 MG TABS NULL 01/30 11/18 18 active IBUPROFEN 800 MG TABS NULL 01/30 11/18 18 active ISOtretinoi n NULL 02/14/20 18 suspend ed LAMOTRIGINE 25 MG TABS NULL 12/21 16 active LAMOTRIGINE 25 MG TABS NULL 12/21 16 active LAMOTRIGINE 25 MG TABS NULL 10/19 16 active Levofloxaci n NULL 09/17/19 15 suspend ed LORazepam NULL 01/15/20 14 active Methoxsalen NULL 04/19/20 15 suspend ed METRONIDAZO LE 250 MG TABS NULL 12/20/19 19 active Minivelle NULL 09/05/19 15 active Minocycline HCl NULL 06/05/20 14 active Mirtazapine NULL 04/10/20 14 active Naltrexone HCl NULL 08/13/19 14 active Nitrofurant oin Monohyd Macro NULL 04/10/20 14 active Ofloxacin NULL 06/05/20 14 active olanzapine olanzapi ne suspend ed Oxsoralen Ultra NULL 04/16/20 15 active OXYCODONE/A CETAMINOPHE N 5-325 MG TABS NULL 02/14/20 18 active PENICILLIN V POTASSIUM 500 MG TABS NULL 12/01 19 active Pentoxifyll ine ER NULL 12/20/19 19 suspend ed Phenergan NULL 09/05/19 15 active Plaquenil NULL 06/24/20 13 suspend ed PredniSONE NULL 06/08/20 10 suspend ed PredniSONE NULL 10/22/19 14 suspend ed PredniSONE NULL 01/29/20 14 suspend ed PREDNISONE 10 MG TABS NULL 12/21 16 active PREDNISONE 10 MG TABS NULL 10/19 16 active Prempro NULL 04/10/20 14 active Progesteron e Micronized NULL 10/21 15 active Promethazin e HCl NULL 10/22/19 15 active Rifampin NULL 06/05/20 14 active salakbetadi pcr NULL 07/20/19 11 active SUPREP BOWEL PREP KIT 17.5-3.13-1 .6 GM/177ML SOLN NULL 12/20/19 19 active Temovate NULL 05/07/20 09 active tiZANidine HCl NULL 04/09/20 13 active Topicort NULL 04/06/20 09 active Topiramate NULL 04/10/20 14 active Topiramate NULL 04/10/20 14 suspend ed TOPIRAMATE 25 MG CPSP NULL 02/28 18 active TOPIRAMATE 25 MG CPSP NULL 02/13 18 active TOPIRAMATE 25 MG CPSP NULL 02/28 18 active TOPIRAMATE 25 MG CPSP NULL 02/13 18 active TOPIRAMATE 25 MG CPSP NULL 12/21 16 active TOPIRAMATE 25 MG CPSP NULL 10/19 16 active TOPIRAMATE 25 MG CPSP NULL 12/21 16 active TOPIRAMATE 25 MG CPSP NULL 10/19 16 active TraZODone HCl NULL 04/10/20 14 active TRENtal NULL 12/14/19 13 active Venlafaxine HCl ER NULL 04/10/20 14 active Venlafaxine HCl ER NULL 04/10/20 14 active VENLAFAXINE HCL ER 37.5 MG CP24 NULL 10/20/19 16 active Zolpidem Tartrate NULL 0 14 active Problems Problem Code Type Status Date of Diagnosis Date of Resolution Granuloma annulare (disorder) 70811196(S NOMED) Diagnosis active 03/03/2025 Itching of skin (finding) 343116439( SNOMED) Diagnosis active 03/03/2025 Granuloma annulare (disorder) 77253997(S NOMED) Diagnosis active 01/29/2025 Granuloma annulare (disorder) 07520037(S NOMED) Diagnosis active 04/19/2023 Vesicular eczema (disorder) 540893185( SNOMED) Diagnosis active 04/19/2023 Granuloma annulare (disorder) 50903003(S NOMED) Diagnosis active 02/13/2023 Vesicular eczema (disorder) 772136642( SNOMED) Diagnosis active 02/13/2023 Vesicular eczema (disorder) 570818945( SNOMED) Diagnosis active 08/10/2022 Vesicular eczema (disorder) 450564983( SNOMED) Diagnosis active 05/10/2021 Animal bite wound (disorder) 454136180( SNOMED) Diagnosis active 05/10/2021 Vesicular eczema (disorder) 129189250( SNOMED) Diagnosis active 03/03/2021 Vesicular eczema (disorder) 172991802( SNOMED) Diagnosis active 02/03/2021 Vesicular eczema (disorder) 485177962( SNOMED) Diagnosis active 11/02/2020 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(ICD- 10) Diagnosis active 07/13/2020 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(ICD- 10) Diagnosis active 02/10/2020 Clinical finding (finding) 153457966( SNOMED) Diagnosis active 12/19/2018 Other retirement (current) drug therapy Z79.899(IC D-10) Diagnosis active 02/28/2018 Granuloma annulare (disorder) 79174296(S NOMED) Diagnosis active 10/30/2017 Other specified health status Z78.9(ICD- 10) Diagnosis active 07/25/2017 Granuloma annulare (disorder) 72065468(S NOMED) Diagnosis active 07/25/2017 Granuloma annulare (disorder) 07466125(S NOMED) Diagnosis active 05/02/2017 Granuloma annulare (disorder) 35145024(S NOMED) Diagnosis active 02/23/2017 Other specified health status Z78.9(ICD- 10) Diagnosis active 01/09/2017 History of pneumonia (situation) 438853471( SNOMED) Diagnosis active 01/09/2017 Granuloma annulare (disorder) 07504332(S NOMED) Diagnosis active 01/09/2017 Granuloma annulare (disorder) 04554847(S NOMED) Diagnosis active 11/22/2016 Granuloma annulare (disorder) 27807338(S NOMED) Diagnosis active 09/27/2016 Senile hyperkeratosis (disorder) 347030598( SNOMED) Diagnosis active 06/21/2016 Granuloma annulare (disorder) 97801637(S NOMED) Diagnosis active 03/14/2016 Granuloma annulare (disorder) 21260977(S NOMED) Diagnosis active 12/22/2015 Granuloma annulare (disorder) 59296130(S NOMED) Diagnosis active 10/20/2015 Granuloma annulare (disorder) 07255013(S NOMED) Diagnosis active 04/16/2015 Erythematous condition (disorder) 02704193(S NOMED) Diagnosis active 03/04/2015 Erythematous condition (disorder) 43342508(S NOMED) Diagnosis active 01/27/2015 Erythematous condition (disorder) 23368564(S NOMED) Diagnosis active 12/25/2014 Other specified health status Z78.9(ICD- 10) Diagnosis active 12/25/2014 Erythematous condition (disorder) 02890978(S NOMED) Diagnosis active 10/21/2014 Erythematous condition (disorder) 63918979(S NOMED) Diagnosis active 09/04/2014 Erythematous condition (disorder) 59111145(S NOMED) Diagnosis active 06/05/2014 Erythematous condition (disorder) 56417725(S NOMED) Diagnosis active 04/10/2014 Erythematous condition (disorder) 61004538(S NOMED) Diagnosis active 02/27/2014 Erythematous condition (disorder) 03478670(S NOMED) Diagnosis active 01/14/2014 Erythematous condition (disorder) 01632245(S NOMED) Diagnosis active 12/03/2013 Erythematous condition (disorder) 26418423(S NOMED) Diagnosis active 12/03/2013 Depressive disorder (disorder) 76120209(S NOMED) Problem active Granuloma annulare (disorder) 90226577(S NOMED) Problem active Arthritis (disorder) 1394095(SN OMED) Problem active Atrial fibrillation (disorder) 85493993(S NOMED) Problem active History of clinical finding in subject (situation) 591864271( SNOMED) Problem active Cirrhosis of liver (disorder) 42447583(S NOMED) Problem active Increased blood pressure (finding) 59248785(S NOMED) Problem active Hypercholesterolemia (disorder) 04911523(S NOMED) Problem active Results No data Encounters Service provided at [address], [address], [place], [place] [id number]. Office phonenumber is [phone]. Office fax number is [phone]. Encounter Diagnosis Location Date / Time Type Granuloma Annulare (L92.0)Pruritus (L29.89) [place] 03/03/2025 17:10:00 [facility] [id number] Reason For Referral No data Procedures Procedure Date Documentation of current medications (pr ocedure) 01/29/2025 12:00 am [place] Injection of triamcinolone (procedure) 0 01/29/2025 12:00 am [place] Total replacement of left knee joint (pr ocedure) Total replacement of right knee joint (p rocedure) History of colectomy (situation) Total replacement of left knee joint (pr ocedure) Total replacement of right knee joint (p rocedure) History of colectomy (situation) History of colectomy (situation) Total replacement of left knee joint (pr ocedure) Total replacement of right knee joint (p rocedure) History of colectomy (situation) Total replacement of left knee joint (pr ocedure) Total replacement of right knee joint (p rocedure) Total replacement of left knee joint (pr ocedure) Total replacement of right knee joint (p rocedure) History of colectomy (situation) History of colectomy (situation) Total replacement of left knee joint (pr ocedure) Total replacement of right knee joint (p rocedure) History of colectomy (situation) Total replacement of left knee joint (pr ocedure) Total replacement of right knee joint (p rocedure) Documentation of past medical history (p rocedure) Total replacement of right knee joint (p rocedure) Documentation of past medical history (p rocedure) History of colectomy (situation) Total replacement of left knee joint (pr ocedure) Total replacement of right knee joint (p rocedure) Documentation of past medical history (p rocedure) History of colectomy (situation) Total replacement of left knee joint (pr ocedure) History of colectomy (situation) Total replacement of left knee joint (pr ocedure) Total replacement of right knee joint (p rocedure) Documentation of past medical history (p rocedure) Documentation of past medical history (p rocedure) History of colectomy (situation) Total replacement of left knee joint (pr ocedure) Total replacement of right knee joint (p rocedure) History of colectomy (situation) Documentation of past medica l history (procedure) Rotator cuff repair 11/2021 Total replacement of left knee joint (pr ocedure) 2011 Total replacement of right k nee joint (procedure) Prior to 2019 Review Of Systems Provider reviewed on Mar 03, 2025.A focused review of systems was performed including Hematologic /Lymphatic and Integumentary and was notable for problems with healing.No Problems With Scarring (hypertrophic Or Keloid) And No Problems With Bleeding. 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 Pt states she was on prednisone for 5 years with benefits.CounselingMedical Photography Review: Review Findings - changing pigmented lesions (addressed during visit).2.PruritusCounselingPrescription: betamethasone dipropionate 0.05 % lotion TPTreatment Regimen: Initiate Treatment - -- betamethasone dipropionate0.05 % lotion TP Sig: Apply BID PRN to scalp itch;. Plan of Care Future visit for 03/03/2026 - Follow up in 1 year for: Focused Visit. Other Instructions: 10FU. Other Instructions: 10FU. Code Detail Instructions [id number] betamethasone diprop ionate 0.05 % lotion Apply BID PRN to scalp itch 5981106 triamcinolone aceton chte 0.1 % topical cream Apply to affected areas of eczema BID for up to 2 weeks. Avoid face and groin. 2433642 Dupixent 300 mg/2 mL subcutaneous syringe Inject 1 syringe SC every other week. Patient requests change from pen needle to syringe. 7480887 Dupixent 300 mg/2 mL subcutaneous pen injector Inject 1 pen needle SC Q 2 weeks 8578266 doxycycline hyclate 100 mg capsu le Take 1 tablet PO BID with food for 10 days. Do not take before bedtime. 912632 betamethasone, augme nted 0.05 % topical ointment Apply on affected area on the hand twice a day as needed. betamethasone diprop ionate 0.05 % topical ointment Apply BID on affected areas on hands prn Instructions * I counseled the patient regarding the following:Skin care: Treatments with topical steroids, intralesional steroids can be helpful.Expectations: Granuloma Annulare is an inflammatory granulomatous process that is usually self-limited. Patient aware that cause is unknown.Contact office if: Granuloma Annulare fails to improve despite several months of treatment. * I counseled the patient regarding the following:Skin care: Recommend moisturizers, anti-histamines and sarna lotion.Expectations: Pruritus can be intermittent or persistent. Persistent cases can be due to dry skin, mite infestations, allergic reactions, neurodermatoses, or organic disease. For pruritus lasting longer than several months, CBC, TSH, LFTs, BUN/Cr may be warranted.Contact office if: Pruritus is accompanied by constitutional symptoms, or persists despite several months of treatment.I recommended the following: Moisturizers * Begin the following treatment(s): -- betamethasone dipropionate 0.05 % lotion TP Sig: Apply BID PRNto scalp itch. Social History Code Activity Start Date End Date 7762833 (KuonaOMED) Former smoker Sex female Sexual orientation Unspecified Gender identity Unspecified Vital Signs No data
--- OUTSIDE RECORDS SUMMARY | 2025-03-04 11:45 | XMS_ITS | Encounter Summary ---
Author Organization [facility] Address [address] [place] [address] Care Team Providers Care Cooling Pipe Inspector Name Role Phone Kailee Kessler MD Primary Care Provider Encounter Details Date Type Department Care Team (Late st Contact Info) Description 08/30/[address] [facility] - Main Lab [address] [facility] [place] [address] Neelima Aldana MD [address] [place] [address] Encounter for other general examination Social History [...] Diagnosis Comments CBC WITH AUTO DIFFERENTIAL Routine 08/30/2024 5:51 AM EST Encounter for other general examination CBC AND DIFFERENTIAL Routine 08/30/2024 5:51 AM EST Encounter for other general examination MAGNESIUM Routine 08/30/2024 5:51 AM EST Encounter for other general examination COMPREHENSIVE METABOLIC PANEL Routine 08/30/2024 5:51 AM EST Encounter for other general examination documented in this encounter Results * (ABNORMAL) CBC auto differential (08/30/2024 5:51 AM EST) WBC 6.3 4.8 - 10.8 K/mcL LAB HEMETOLOGY METHOD 08/30/2024 12:16 PM [facility] RBC 4.20 3.80 - 4.80 M/mcL LAB HEMETOLOGY METHOD 08/30/2024 12:16 PM [facility] Hemoglobin 13.0 11.5 - 16.0 g/dL LAB HEMETOLOGY METHOD 08/30/2024 12:16 PM [facility] Hematocrit 41.0 35.0 - 47.0 % LAB HEMETOLOGY METHOD 08/30/2024 12:16 PM [facility] MCV 97.2 79.0 - 98.0 FL LAB HEMETOLOGY METHOD 08/30/2024 12:16 PM [facility] MCH 30.8 27.0 - 32.0 pcg LAB HEMETOLOGY METHOD 08/30/2024 12:16 PM [facility] MCHC 31.7(L) 32.0 - 37.0 g/dL LAB HEMETOLOGY METHOD 08/30/2024 12:16 PM [facility] RDW 14.8 11.0 - 15.0 % LAB HEMETOLOGY METHOD 08/30/2024 12:16 PM [facility] Platelets 88(L) 130 - 400 K/mcL LAB HEMETOLOGY METHOD 08/30/2024 12:16 PM [facility] Comment:reviewed by slide MPV 11.7(H) 7.0 - 11.0 FL LAB HEMETOLOGY METHOD 08/30/2024 12:16 PM [facility] NRBC 0.0 <1.0 % LAB HEMETOLOGY METHOD 08/30/2024 12:16 PM [facility] NRBC Absolute 0.00 <0.10 K/mcL LAB HEMETOLOGY METHOD 08/30/2024 12:16 PM [facility] Neutrophils Relative 75.4 % LAB HEMETOLOGY METHOD 08/30/2024 12:16 PM [facility] Lymphocytes Relative 12.9 % LAB HEMETOLOGY METHOD 08/30/2024 12:16 PM [facility] Monocytes Relative 7.2 % LAB HEMETOLOGY METHOD 08/30/2024 12:16 PM [facility] Eosinophils Relative 2.9 % LAB HEMETOLOGY METHOD 08/30/2024 12:16 PM [facility] Basophils Relative 1.0 % LAB HEMETOLOGY METHOD 08/30/2024 12:16 PM [facility] Immature Granulocytes Relative 0.6 % LAB HEMETOLOGY METHOD 08/30/2024 12:16 PM [facility] Neutrophils Absolute 4.74 1.50 - 7.00 K/mcL LAB HEMETOLOGY METHOD 08/30/2024 12:16 PM [facility] Lymphocytes Absolute 0.81(L) 1.00 - 5.00 K/mcL LAB HEMETOLOGY METHOD 08/30/2024 12:16 PM [facility] Monocytes Absolute 0.45 0.20 - 1.00 K/mcL LAB HEMETOLOGY METHOD 08/30/2024 12:16 PM [facility] Eosinophils Absolute 0.18 0.00 - 0.50 K/mcL LAB HEMETOLOGY METHOD 08/30/2024 12:16 PM [facility] Basophils Absolute 0.06 0.00 - 0.20 K/mcL LAB HEMETOLOGY METHOD 08/30/2024 12:16 PM [facility] Immature Granulocytes Absolute 0.04(H) 0.00 - 0.03 K/mcL LAB HEMETOLOGY METHOD 08/30/2024 12:[address] [facility] Blood Venous blood specimen / Unknown Venipuncture / Unknown 08/30/2024 5:51 AM EST 08/30/2024 10:59 AM EST Neelima Aldana MD LAB BLOOD ORDERABLES Final Resu lt Performing Organization Address City/[facility]/ZIP Co de Phone Number [facility] [address] [place] [address], [place] [phone] * Magnesium (08/30/2024 5:51 AM EST) Pathologist [facility] Magnesium 2.2 1.9 - 2.6 mg/dL LAB CHEMISTRY METHOD 08/30/2024 12:[address] [facility] Blood Venous blood specimen / Unknown Venipuncture / Unknown 08/30/2024 5:51 AM EST 08/30/2024 10:59 AM EST Neelima Aldana MD LAB BLOOD ORDERABLES Final Resu lt Performing Organization Address [facility]/ZIP Co de Phone Number [facility] [address] [place] [address], [place] [phone] * (ABNORMAL) Comprehensive metabolic panel (08/30/2024 5:51 AM EST) Pathologist [facility] Sodium 142 133 - 145 mmol/L LAB CHEMISTRY METHOD 08/30/2024 12:[address] [facility] Potassium 4.5 3.5 - 5.5 mmol/L LAB CHEMISTRY METHOD 08/30/2024 12:[address] [facility] Chloride 107 96 - 110 mmol/L LAB CHEMISTRY METHOD 08/30/2024 12:[address] [facility] CO2 29 21 - 32 mmol/L LAB CHEMISTRY METHOD 08/30/2024 12:[address] [facility] Anion Gap 6 3 - 11 LAB CHEMISTRY METHOD 08/30/2024 12:23 PM [facility] Glucose 85 70 - 100 mg/dL LAB CHEMISTRY METHOD 08/30/2024 12:23 PM [facility] BUN 19 5 - 25 mg/dL LAB CHEMISTRY METHOD 08/30/2024 12:23 PM [facility] Creatinine 0.74 0.50 - 1.10 mg/dL LAB CHEMISTRY METHOD 08/30/2024 12:23 PM [facility] eGFR 83 >=60 mL/min/1. 73m2 LAB CHEMISTRY METHOD 08/30/2024 12:23 PM [facility] Comment:Calculation based on the Chronic Kidney Disease Epidemiology Collaboration (CKD-EPI) equation refit without adjustment for race. BUN/Creatinine Ratio 25.7 LAB CHEMISTRY METHOD 08/30/2024 12:23 PM [facility] Calcium 8.9 8.5 - 10.5 mg/dL LAB CHEMISTRY METHOD 08/30/2024 12:23 PM [facility] AST (SGOT) 29 10 - 42 unit/L LAB CHEMISTRY METHOD 08/30/2024 12:23 PM [facility] ALT (SGPT) 31 10 - 60 unit/L LAB CHEMISTRY METHOD 08/30/2024 12:23 PM [facility] Alkaline Phosphatase 100 42 - 121 unit/L LAB CHEMISTRY METHOD 08/30/2024 12:23 PM [facility] Total Protein 5.7(L) 6.0 - 8.0 g/dL LAB CHEMISTRY METHOD 08/30/2024 12:23 PM [facility] Albumin 3.2 3.2 - 5.0 g/dL LAB CHEMISTRY METHOD 08/30/2024 12:23 PM [facility] Total Bilirubin 1.0 0.0 - 1.4 mg/dL LAB CHEMISTRY METHOD 08/30/2024 12:23 PM [facility] Blood Venous blood specimen / Unknown Venipuncture / Unknown 08/30/2024 5:51 AM EST 08/30/2024 10:59 AM EST us Neelima Aldana MD LAB BLOOD ORDERABLES Final Resu lt [facility] ([facility]) [facility] [address] [place] [address], documented in this encounter Visit Diagnoses Diagnosis Encounter for other general examination documented in this encounter Care Teams Cooling Pipe Inspector Relationship Specialty Start Date End Date Kailee Kessler MD [address] [place] [address] PCP - General 05/01/1999 documented as of this encounter
--- OUTSIDE RECORDS SUMMARY | 2025-03-04 11:45 | XMS_ITS | Encounter Summary ---
Author Organization [facility] Address [address] [place] [address] Care Team Providers Care Employee Development Specialist Name Role Phone Kailee Kessler MD Primary Care Provider [phone] Encounter Details Date Type Department Care Team (Late st Contact Info) Description 09/18/2024 Lab Requisition [facility] - Main Lab [address] [facility] [place] [address] Ny Gutiérrez MD [address] [place] [id number] Encounter for other general examination Social History [...] Diagnosis Comments CBC WITH AUTO DIFFERENTIAL Routine 09/18/2024 6:03 AM EDT Encounter for other general examination ACTIVATED PARTIAL THROMBOPLASTIN TIME Routine 09/18/2024 6:03 AM EDT Encounter for other general examination PROTHROMBIN TIME WITH INR Routine 09/18/2024 6:03 AM EDT Encounter for other general examination CBC AND DIFFERENTIAL Routine 09/18/2024 6:03 AM EDT Encounter for other general examination LIPASE Routine 09/18/2024 6:03 AM EDT Encounter for other general examination COMPREHENSIVE METABOLIC PANEL Routine 09/18/2024 6:03 AM EDT Encounter for other general examination documented in this encounter Results * (ABNORMAL) CBC auto differential (09/18/2024 6:03 AM EDT) [facility] WBC 4.2(L) 4.8 - 10.8 K/mcL LAB HEMETOLOGY METHOD 09/18/2024 10:02 AM [facility] RBC 4.20 3.80 - 4.80 M/mcL LAB HEMETOLOGY METHOD 09/18/2024 10:02 AM [facility] Hemoglobin 13.1 11.5 - 16.0 g/dL LAB HEMETOLOGY METHOD 09/18/2024 10:02 AM [facility] Hematocrit 40.4 35.0 - 47.0 % LAB HEMETOLOGY METHOD 09/18/2024 10:02 AM [facility] MCV 95.3 79.0 - 98.0 FL LAB HEMETOLOGY METHOD 09/18/2024 10:02 AM [facility] MCH 30.9 27.0 - 32.0 pcg LAB HEMETOLOGY METHOD 09/18/2024 10:02 AM [facility] MCHC 32.4 32.0 - 37.0 g/dL LAB HEMETOLOGY METHOD 09/18/2024 10:02 AM [facility] RDW 15.8(H) 11.0 - 15.0 % LAB HEMETOLOGY METHOD 09/18/2024 10:02 AM [facility] Platelets 118(L) 130 - 400 K/mcL LAB HEMETOLOGY METHOD 09/18/2024 10:02 AM [facility] MPV 11.3(H) 7.0 - 11.0 FL LAB HEMETOLOGY METHOD 09/18/2024 10:02 AM [facility] NRBC 0.0 <1.0 % LAB HEMETOLOGY METHOD 09/18/2024 10:02 AM [facility] NRBC Absolute 0.00 <0.10 K/mcL LAB HEMETOLOGY METHOD 09/18/2024 10:02 AM [facility] Neutrophils Relative 63.6 % LAB HEMETOLOGY METHOD 09/18/2024 10:02 AM [facility] Lymphocytes Relative 21.9 % LAB HEMETOLOGY METHOD 09/18/2024 10:02 AM [facility] Monocytes Relative 9.0 % LAB HEMETOLOGY METHOD 09/18/2024 10:02 AM [facility] Eosinophils Relative 4.0 % LAB HEMETOLOGY METHOD 09/18/2024 10:02 AM [facility] Basophils Relative 1.0 % LAB HEMETOLOGY METHOD 09/18/2024 10:02 AM [facility] Immature Granulocytes Relative 0.5 % LAB HEMETOLOGY METHOD 09/18/2024 10:02 AM [facility] Neutrophils Absolute 2.67 1.50 - 7.00 K/mcL LAB HEMETOLOGY METHOD 09/18/2024 10:02 AM [facility] Lymphocytes Absolute 0.92(L) 1.00 - 5.00 K/mcL LAB HEMETOLOGY METHOD 09/18/2024 10:02 AM [facility] Monocytes Absolute 0.38 0.20 - 1.00 K/mcL LAB HEMETOLOGY METHOD 09/18/2024 10:02 AM [facility] Eosinophils Absolute 0.17 0.00 - 0.50 K/mcL LAB HEMETOLOGY METHOD 09/18/2024 10:[address] [facility] Basophils Absolute 0.04 0.00 - 0.20 K/[facility] LAB HEMETOLOGY METHOD 09/18/2024 10:[address] [facility] Immature Granulocytes Absolute 0.02 0.00 - 0.03 K/[facility] LAB HEMETOLOGY METHOD 09/18/2024 10:[address] [facility] Blood Venous blood specimen / Unknown Venipuncture / Unknown 09/18/2024 6:03 AM EDT 09/18/2024 9:10 AM EDT Ny Gutiérrez MD LAB BLOOD ORDERABLES Final Res ult Performing Organization Address [facility]/ZIP Co de Phone Number [facility] [address] [place] [address], [place] [phone] * Activated partial thromboplastin time (09/18/2024 6:03 AM EDT) aPTT 27.7 24.1 - 39.3 sec LAB COAGULATION METHOD 09/18/2024 10:[address] [facility] Blood Venous blood specimen / Unknown Venipuncture / Unknown 09/18/2024 6:03 AM EDT 09/18/2024 9:10 AM EDT Ny Gutiérrez MD LAB BLOOD ORDERABLES Final Res ult [facility] [address] [place] [address], [place] [phone] * Prothrombin time with INR (09/18/2024 6:03 AM EDT) Protime 11.9 10.6 - 13.9 sec LAB COAGULATION METHOD 09/18/2024 10:[address] [facility] INR 0.9 LAB COAGULATION METHOD 09/18/2024 10:[address] [facility] Blood Venous blood specimen / Unknown Venipuncture / Unknown 09/18/2024 6:03 AM EDT 09/18/2024 9:10 AM EDT us Ny Gutiérrez MD LAB BLOOD ORDERABLES Final Res ult Performing Organization Address [facility]/ZIP Co de Phone Number [facility] [address] [place] [address], [place] [phone] * Lipase (09/18/2024 6:03 AM EDT) Pathologist [facility] Lipase 41 13 - 75 unit/L LAB CHEMISTRY METHOD 09/18/2024 10:[address] [facility] Blood Venous blood specimen / Unknown Venipuncture / Unknown 09/18/2024 6:03 AM EDT 09/18/2024 9:10 AM EDT us Ny Gutiérrez MD LAB BLOOD ORDERABLES Final Res ult Performing Organization Address [facility] de Phone Number [facility] [address] [place] [address], [place] [phone] * (ABNORMAL) Comprehensive metabolic panel (09/18/2024 6:03 AM EDT) Pathologist [facility] Sodium 142 133 - 145 mmol/L LAB CHEMISTRY METHOD 09/18/2024 10:[address] [facility] Potassium 5.1 3.5 - 5.5 mmol/L LAB CHEMISTRY METHOD 09/18/2024 10:[address] [facility] Chloride 108 96 - 110 mmol/L LAB CHEMISTRY METHOD 09/18/2024 10:[address] [facility] CO2 29 21 - 32 mmol/L LAB CHEMISTRY METHOD 09/18/2024 10:[address] [facility] Anion Gap 5 3 - 11 LAB CHEMISTRY METHOD 09/18/2024 10:43 AM [facility] Glucose 85 70 - 100 mg/dL LAB CHEMISTRY METHOD 09/18/2024 10:43 AM [facility] BUN 23 5 - 25 mg/dL LAB CHEMISTRY METHOD 09/18/2024 10:43 AM [facility] Creatinine 0.80 0.50 - 1.10 mg/dL LAB CHEMISTRY METHOD 09/18/2024 10:43 AM [facility] eGFR 76 >=60 mL/min/1. 73m2 LAB CHEMISTRY METHOD 09/18/2024 10:43 AM [facility] Comment:Calculation based on the Chronic Kidney Disease Epidemiology Collaboration (CKD-EPI) equation refit without adjustment for race. BUN/Creatinine Ratio 28.8 LAB CHEMISTRY METHOD 09/18/2024 10:43 AM [facility] Calcium 9.3 8.5 - 10.5 mg/dL LAB CHEMISTRY METHOD 09/18/2024 10:43 AM [facility] AST (SGOT) 19 10 - 42 unit/L LAB CHEMISTRY METHOD 09/18/2024 10:43 AM [facility] ALT (SGPT) 26 10 - 60 unit/L LAB CHEMISTRY METHOD 09/18/2024 10:43 AM [facility] Alkaline Phosphatase 164(H) 42 - 121 unit/L LAB CHEMISTRY METHOD 09/18/2024 10:43 AM [facility] Total Protein 5.7(L) 6.0 - 8.0 g/dL LAB CHEMISTRY METHOD 09/18/2024 10:43 AM [facility] Albumin 3.2 3.2 - 5.0 g/dL LAB CHEMISTRY METHOD 09/18/2024 10:43 AM [facility] Total Bilirubin 0.6 0.0 - 1.4 mg/dL LAB CHEMISTRY METHOD 09/18/2024 10:[address] [facility] Blood Venous blood specimen / Unknown Venipuncture / Unknown 09/18/2024 6:03 AM EDT 09/18/2024 9:10 AM EDT us Ny Gutiérrez MD LAB BLOOD ORDERABLES Final Res ult [facility] [address] [place] [address], documented in this encounter Visit Diagnoses Diagnosis Encounter for other general examination documented in this encounter Care Teams Employee Development Specialist Relationship Specialty Start Date End Date Kailee Kessler MD [address] [place] [address] PCP - General 05/01/1999 documented as of this encounter
--- OUTSIDE RECORDS SUMMARY | 2025-03-04 11:45 | XMS_ITS | Encounter Summary ---
Author Organization [facility] Address [address] [place] [address] Care Team Providers Care Commercial Real Estate Paralegal Name Role Phone Kailee Kessler MD Primary Care Provider [phone] Encounter Details Date Type Department Care Team (Late st Contact Info) Description 09/06/2024 Lab Requisition [facility] - Main Lab [address] [facility] [place] [address] Neelima Aldana MD [address] [place] [address] Encounter for other general examination Social History [...] Diagnosis Comments CBC WITH AUTO DIFFERENTIAL Routine 09/06/2024 5:41 AM EST Encounter for other general examination CBC AND DIFFERENTIAL Routine 09/06/2024 5:41 AM EST Encounter for other general examination C-REACTIVE PROTEIN Routine 09/06/2024 5: 41 AM EST Encounter for other general examination COMPREHENSIVE METABOLIC PANEL Routine 09/06/2024 5:41 AM EST Encounter for other general examination documented in this encounter Results * (ABNORMAL) CBC auto differential (09/06/2024 5:41 AM EST) WBC 3.6(L) 4.8 - 10.8 K/mcL LAB HEMETOLOGY METHOD 09/06/2024 12:51 PM [facility] RBC 4.40 3.80 - 4.80 M/mcL LAB HEMETOLOGY METHOD 09/06/2024 12:51 PM [facility] Hemoglobin 13.5 11.5 - 16.0 g/dL LAB HEMETOLOGY METHOD 09/06/2024 12:51 PM [facility] Hematocrit 43.3 35.0 - 47.0 % LAB HEMETOLOGY METHOD 09/06/2024 12:51 PM [facility] MCV 99.3(H) 79.0 - 98.0 FL LAB HEMETOLOGY METHOD 09/06/2024 12:51 PM [facility] MCH 31.0 27.0 - 32.0 pcg LAB HEMETOLOGY METHOD 09/06/2024 12:51 PM [facility] MCHC 31.2(L) 32.0 - 37.0 g/dL LAB HEMETOLOGY METHOD 09/06/2024 12:51 PM [facility] RDW 15.9(H) 11.0 - 15.0 % LAB HEMETOLOGY METHOD 09/06/2024 12:51 PM [facility] Platelets 123(L) 130 - 400 K/mcL LAB HEMETOLOGY METHOD 09/06/2024 12:51 PM [facility] MPV 11.5(H) 7.0 - 11.0 FL LAB HEMETOLOGY METHOD 09/06/2024 12:51 PM [facility] NRBC 0.0 <1.0 % LAB HEMETOLOGY METHOD 09/06/2024 12:51 PM [facility] NRBC Absolute 0.00 <0.10 K/mcL LAB HEMETOLOGY METHOD 09/06/2024 12:51 PM [facility] Neutrophils Relative 65.8 % LAB HEMETOLOGY METHOD 09/06/2024 12:51 PM [facility] Lymphocytes Relative 18.5 % LAB HEMETOLOGY METHOD 09/06/2024 12:51 PM [facility] Monocytes Relative 12.4 % LAB HEMETOLOGY METHOD 09/06/2024 12:51 PM [facility] Eosinophils Relative 1.9 % LAB HEMETOLOGY METHOD 09/06/2024 12:51 PM [facility] Basophils Relative 1.1 % LAB HEMETOLOGY METHOD 09/06/2024 12:51 PM [facility] Immature Granulocytes Relative 0.3 % LAB HEMETOLOGY METHOD 09/06/2024 12:51 PM [facility] Neutrophils Absolute 2.39 1.50 - 7.00 K/mcL LAB HEMETOLOGY METHOD 09/06/2024 12:51 PM [facility] Lymphocytes Absolute 0.67(L) 1.00 - 5.00 K/mcL LAB HEMETOLOGY METHOD 09/06/2024 12:51 PM [facility] Monocytes Absolute 0.45 0.20 - 1.00 K/mcL LAB HEMETOLOGY METHOD 09/06/2024 12:51 PM [facility] Eosinophils Absolute 0.07 0.00 - 0.50 K/mcL LAB HEMETOLOGY METHOD 09/06/2024 12:51 PM [facility] Basophils Absolute 0.04 0.00 - 0.20 K/mcL LAB HEMETOLOGY METHOD 09/06/2024 12:51 PM [facility] Immature Granulocytes Absolute 0.01 0.00 - 0.03 K/mcL LAB HEMETOLOGY METHOD 09/06/2024 12:51 PM EST [facility] Blood Venous blood specimen / Unknown Venipuncture / Unknown 09/06/2024 5:41 AM EST 09/06/2024 10:00 AM EST Neelima Aldana MD LAB BLOOD ORDERABLES Final Resu lt Performing Organization Address [facility]/ZIP Co de Phone Number [facility] [address] [place] [address], [place] [phone] * (ABNORMAL) C-reactive protein (09/06/2024 5:41 AM EST) [facility] C-Reactive Protein 1.07(H) <=0.50 mg/dL LAB CHEMISTRY METHOD 09/06/2024 11:39 AM EST [facility] Blood Venous blood specimen / Unknown Venipuncture / Unknown 09/06/2024 5:41 AM EST 09/06/2024 10:00 AM EST Neelima Aldana MD LAB BLOOD ORDERABLES Final Resu lt Performing Organization Address [facility] Co de Phone Number [facility] [address] [place] [address], [place] [phone] * Comprehensive metabolic panel (09/06/2024 5:41 AM EST) [facility] Sodium 138 133 - 145 mmol/L LAB CHEMISTRY METHOD 09/06/2024 11:39 AM EST [facility] Potassium 4.1 3.5 - 5.5 mmol/L LAB CHEMISTRY METHOD 09/06/2024 11:39 AM EST [facility] Chloride 101 96 - 110 mmol/L LAB CHEMISTRY METHOD 09/06/2024 11:39 AM EST [facility] CO2 30 21 - 32 mmol/L LAB CHEMISTRY METHOD 09/06/2024 11:39 AM EST [facility] Anion Gap 7 3 - 11 LAB CHEMISTRY METHOD 09/06/2024 11:39 AM [facility] Glucose 76 70 - 100 mg/dL LAB CHEMISTRY METHOD 09/06/2024 11:39 AM [facility] BUN 20 5 - 25 mg/dL LAB CHEMISTRY METHOD 09/06/2024 11:39 AM [facility] Creatinine 0.78 0.50 - 1.10 mg/dL LAB CHEMISTRY METHOD 09/06/2024 11:39 AM [facility] eGFR 78 >=60 mL/min/1. 73m2 LAB CHEMISTRY METHOD 09/06/2024 11:39 AM [facility] Comment:Calculation based on the Chronic Kidney Disease Epidemiology Collaboration (CKD-EPI) equation refit without adjustment for race. BUN/Creatinine Ratio 25.6 LAB CHEMISTRY METHOD 09/06/2024 11:39 AM [facility] Calcium 9.3 8.5 - 10.5 mg/dL LAB CHEMISTRY METHOD 09/06/2024 11:39 AM [facility] AST (SGOT) 35 10 - 42 unit/L LAB CHEMISTRY METHOD 09/06/2024 11:39 AM [facility] ALT (SGPT) 37 10 - 60 unit/L LAB CHEMISTRY METHOD 09/06/2024 11:39 AM [facility] Alkaline Phosphatase 121 42 - 121 unit/L LAB CHEMISTRY METHOD 09/06/2024 11:39 AM [facility] Total Protein 6.0 6.0 - 8.0 g/dL LAB CHEMISTRY METHOD 09/06/2024 11:39 AM [facility] Albumin 3.5 3.2 - 5.0 g/dL LAB CHEMISTRY METHOD 09/06/2024 11:39 AM [facility] Total Bilirubin 0.6 0.0 - 1.4 mg/dL LAB CHEMISTRY METHOD 09/06/2024 11:39 AM EST [facility] Blood Venous blood specimen / Unknown Venipuncture / Unknown 09/06/2024 5:41 AM EST 09/06/2024 10:00 AM EST us Neelima Aldana MD LAB BLOOD ORDERABLES Final Resu lt [facility] ([facility]) [facility] [address] [place] [address], documented in this encounter Visit Diagnoses Diagnosis Encounter for other general examination documented in this encounter Care Teams Commercial Real Estate Paralegal Relationship Specialty Start Date End Date Kailee Kessler MD [address] [place] [address] PCP - General 05/01/1999 documented as of this encounter
== END 2025-03-04 11:01 | disposition home or self-care (01) ==
LOC: HO.HPS 10:14
PROVIDERS: PCP Family Medicine; Visit Provider Hospitalist
DX: R05.3 Chronic cough (principal); K44.9 Diaphragmatic hernia without obstruction or gangrene; G47.33 Obstructive sleep apnea (adult) (pediatric); J45.40 Moderate persistent asthma, uncomplicated; S22.41XA Multiple fractures of ribs, right side, initial encounter for closed fracture; J41.0 Simple chronic bronchitis
CPT/HCPCS: 99214

== ENCOUNTER → 2025-03-04 10:14 | Outpatient (BNVA) | payer MEDICARE, SELFPAY | PROVIDERS: PCP Family Medicine; Visit Provider Hospitalist | DX: J41.0 Simple chronic bronchitis (principal); K44.9 Diaphragmatic hernia without obstruction or gangrene; G47.33 Obstructive sleep apnea (adult) (pediatric); J45.40 Moderate persistent asthma, uncomplicated; S22.41XD Multiple fractures of ribs, right side, subsequent encounter for fracture with routine healing | CPT/HCPCS: 99212 ==

== ENCOUNTER 2025-05-12 09:45 | Outpatient (REF) | payer MEDICARE, SELFPAY ==
--- NOTE | ~2025-05-12 | FL_ITS ---
EXAMINATION: FL ESOPHAGRAM CLINICAL INFORMATION: Gastroesophageal reflux COMPARISON: None. TECHNIQUE: Under fluoroscopy, patient swallowed barium of thin and thick consistency, effervescent granules, and subsequently barium tablet.. FLUOROSCOPY TIME: 40 seconds DOSE AREA PRODUCT: 116 uGy-m2 (microgray-meters squared) FINDINGS: Swallowing: Normal. No penetration or aspiration events occurred throughout the duration of the study. Esophagus: Normal caliber and motility. No esophageal mass or ulceration. There is no evidence of stricture. A barium pill traversed the esophagus and GE junction without difficulty.. Gastroesophageal Reflux: Moderate reflux in the supine position. Stomach: Moderate hiatal hernia. FL/FL barium swallow with air IMPRESSION: * Moderate hiatal hernia. * Moderate gastroesophageal reflux in the supine position. Electronically signed by: Thomas Jewell MD 05/12/2025 04:18 PM [facility]IN[facility] TOLLIVER
--- OUTSIDE RECORDS SUMMARY | 2025-05-12 11:00 | XMS_ITS | Encounter Summary ---
Author Organization [facility] Address [address] [place] [address] Care Team Providers Care Water Resource Engineering Specialist Name Role Phone Kailee Kessler MD Primary Care Provider [phone] Encounter Details Date Type Department Care Team (Late st Contact Info) Description 09/06/2024 Lab Requisition [facility] - Main Lab [address] [facility] [place] [address] Neelima Aldana MD [address] [place] [address] Encounter for other general examination Social History [...] K/mcL LAB HEMETOLOGY METHOD 09/06/2024 12:51 PM [facility] RBC 4.40 3.80 - 4.80 M/mcL LAB HEMETOLOGY METHOD 09/06/2024 12:51 PM [facility] Hemoglobin 13.5 11.5 - 16.0 g/dL LAB HEMETOLOGY METHOD 09/06/2024 12:51 PM [facility] Hematocrit 43.3 35.0 - 47.0 % LAB HEMETOLOGY METHOD 09/06/2024 12:51 PM [facility] MCV 99.3(H) 79.0 - 98.0 FL LAB HEMETOLOGY METHOD 09/06/2024 12:51 PM [facility] MCH 31.0 27.0 - 32.0 pcg LAB HEMETOLOGY METHOD 09/06/2024 12:51 PM [facility] MCHC 31.2(L) 32.0 - 37.0 g/dL LAB HEMETOLOGY METHOD 09/06/2024 12:51 PM [facility] RDW 15.9(H) 11.0 - 15.0 % LAB HEMETOLOGY METHOD 09/06/2024 12:51 PM [facility] Platelets 123(L) 130 - 400 K/mcL LAB HEMETOLOGY METHOD 09/06/2024 12:51 PM [facility] MPV 11.5(H) 7.0 - 11.0 FL LAB HEMETOLOGY METHOD 09/06/2024 12:51 PM [facility] NRBC 0.0 <1.0 % LAB HEMETOLOGY METHOD 09/06/2024 12:51 PM [facility] NRBC Absolute 0.00 <0.10 K/mcL LAB HEMETOLOGY METHOD 09/06/2024 12:51 PM [facility] Neutrophils Relative 65.8 % LAB HEMETOLOGY METHOD 09/06/2024 12:51 PM [facility] Lymphocytes Relative 18.5 % LAB HEMETOLOGY METHOD 09/06/2024 12:51 PM [facility] Monocytes Relative 12.4 % LAB HEMETOLOGY METHOD 09/06/2024 12:51 PM [facility] Eosinophils Relative 1.9 % LAB HEMETOLOGY METHOD 09/06/2024 12:51 PM [facility] Basophils Relative 1.1 % LAB HEMETOLOGY METHOD 09/06/2024 12:51 PM [facility] Immature Granulocytes Relative 0.3 % LAB HEMETOLOGY METHOD 09/06/2024 12:51 PM [facility] Neutrophils Absolute 2.39 1.50 - 7.00 K/mcL LAB HEMETOLOGY METHOD 09/06/2024 12:51 PM [facility] Lymphocytes Absolute 0.67(L) 1.00 - 5.00 K/mcL LAB HEMETOLOGY METHOD 09/06/2024 12:51 PM [facility] Monocytes Absolute 0.45 0.20 - 1.00 K/mcL LAB HEMETOLOGY METHOD 09/06/2024 12:51 PM [facility] Eosinophils Absolute 0.07 0.00 - 0.50 K/mcL LAB HEMETOLOGY METHOD 09/06/2024 12:51 PM [facility] Basophils Absolute 0.04 0.00 - 0.20 K/mcL LAB HEMETOLOGY METHOD 09/06/2024 12:51 PM [facility] Immature Granulocytes Absolute 0.01 0.00 - 0.03 K/mcL LAB HEMETOLOGY METHOD 09/06/2024 12:[address] [facility] Blood Venous blood specimen / Unknown Venipuncture / Unknown 09/06/2024 5:41 AM EST 09/06/2024 10:00 AM EST Neelima Aldana MD LAB BLOOD ORDERABLES Final Resu lt Performing Organization Address [facility]/ZIP Co de Phone Number [facility] [address] [place] [address], [place] [phone] * (ABNORMAL) C-reactive protein (09/06/2024 5:41 AM EST) [facility] C-Reactive Protein 1.07(H) <=0.50 mg/dL LAB CHEMISTRY METHOD 09/06/2024 11:[address] [facility] Blood Venous blood specimen / Unknown Venipuncture / Unknown 09/06/2024 5:41 AM EST 09/06/2024 10:00 AM EST Neelima Aldana MD LAB BLOOD ORDERABLES Final Resu lt Performing Organization Address [facility] Co de Phone Number [facility] [address] [place] [address], [place] [phone] * Comprehensive metabolic panel (09/06/2024 5:41 AM EST) [facility] Sodium 138 133 - 145 mmol/L LAB CHEMISTRY METHOD 09/06/2024 11:[address] [facility] Potassium 4.1 3.5 - 5.5 mmol/L LAB CHEMISTRY METHOD 09/06/2024 11:[address] [facility] Chloride 101 96 - 110 mmol/L LAB CHEMISTRY METHOD 09/06/2024 11:[address] [facility] CO2 30 21 - 32 mmol/L LAB CHEMISTRY METHOD 09/06/2024 11:[address] [facility] Anion Gap 7 3 - 11 LAB CHEMISTRY METHOD 09/06/2024 11:39 AM [facility] Glucose 76 70 - 100 mg/dL LAB CHEMISTRY METHOD 09/06/2024 11:39 AM [facility] BUN 20 5 - 25 mg/dL LAB CHEMISTRY METHOD 09/06/2024 11:39 AM [facility] Creatinine 0.78 0.50 - 1.10 mg/dL LAB CHEMISTRY METHOD 09/06/2024 11:39 AM [facility] eGFR 78 >=60 mL/min/1. 73m2 LAB CHEMISTRY METHOD 09/06/2024 11:39 AM [facility] Comment:Calculation based on the Chronic Kidney Disease Epidemiology Collaboration (CKD-EPI) equation refit without adjustment for race. BUN/Creatinine Ratio 25.6 LAB CHEMISTRY METHOD 09/06/2024 11:39 AM [facility] Calcium 9.3 8.5 - 10.5 mg/dL LAB CHEMISTRY METHOD 09/06/2024 11:39 AM [facility] AST (SGOT) 35 10 - 42 unit/L LAB CHEMISTRY METHOD 09/06/2024 11:39 AM [facility] ALT (SGPT) 37 10 - 60 unit/L LAB CHEMISTRY METHOD 09/06/2024 11:39 AM [facility] Alkaline Phosphatase 121 42 - 121 unit/L LAB CHEMISTRY METHOD 09/06/2024 11:39 AM [facility] Total Protein 6.0 6.0 - 8.0 g/dL LAB CHEMISTRY METHOD 09/06/2024 11:39 AM [facility] Albumin 3.5 3.2 - 5.0 g/dL LAB CHEMISTRY METHOD 09/06/2024 11:39 AM [facility] Total Bilirubin 0.6 0.0 - 1.4 mg/dL LAB CHEMISTRY METHOD 09/06/2024 11:39 AM EST [facility] Blood Venous blood specimen / Unknown Venipuncture / Unknown 09/06/2024 5:41 AM EST 09/06/2024 10:00 AM EST us Neelima Aldana MD LAB BLOOD ORDERABLES Final Resu lt [facility] ([facility]) [facility] [address] [place] [address], documented in this encounter Visit Diagnoses Diagnosis Encounter for other general examination documented in this encounter Care Teams Water Resource Engineering Specialist Relationship Specialty Start Date End Date Kailee Kessler MD [address] [place] [address] PCP - General 05/01/1999 documented as of this encounter
--- OUTSIDE RECORDS SUMMARY | 2025-05-12 11:00 | XMS_ITS | Encounter Summary ---
Author Organization [facility] Address [address] [place] [address] Phone Care Team Providers Care Tester Armature Or Fields Name Role Phone Trey Kenney MD Primary Care Provider + Encounter Details Date Type Department Care Team (Late st Contact Info) Description 06/13/2024 Procedure Pass [facility], Ct Scan - [address] [address] Social History Tobacco Use Types Packs/Day Years [...] 06/13/2024 4:24 PM [place] RN * [place] Suicide Severity Rating Scale (Screener/Recent Self-Report) Question [...] on filedocumented in this encounter Care Teams Tester Armature Or Fields Relationship Specialty Start Date End Date Trey Kenney MD [address] [place] [address] PCP - General Family Medicine 06/13/24 documented as of this encounter Additional Source Comments The information contained in this document represents components of the legal health record. It is not the complete legal health record.[facility]
--- OUTSIDE RECORDS SUMMARY | 2025-05-12 11:00 | XMS_ITS | Encounter Summary ---
Author Organization [facility] Address [address] [place] [address] Care Team Providers Care Retail Financial Analyst Name Role Phone Kailee Kessler MD Primary Care Provider [phone] Encounter Details Date Type Department Care Team (Late st Contact Info) Description 09/18/2024 Lab Requisition [facility] - Main Lab [address] [facility] [place] [address] Ny Gutiérrez MD [address] [place] [address] Encounter for other general examination Social History [...] CBC auto differential (09/18/2024 6:03 AM EDT) [facility] WBC 4.2(L) 4.8 - 10.8 K/mcL LAB HEMETOLOGY METHOD 09/18/2024 10:02 AM [facility] RBC 4.20 3.80 - 4.80 M/mcL LAB HEMETOLOGY METHOD 09/18/2024 10:02 AM [facility] Hemoglobin 13.1 11.5 - 16.0 g/dL LAB HEMETOLOGY METHOD 09/18/2024 10:02 AM [facility] Hematocrit 40.4 35.0 - 47.0 % LAB HEMETOLOGY METHOD 09/18/2024 10:02 AM [facility] MCV 95.3 79.0 - 98.0 FL LAB HEMETOLOGY METHOD 09/18/2024 10:02 AM [facility] MCH 30.9 27.0 - 32.0 pcg LAB HEMETOLOGY METHOD 09/18/2024 10:02 AM [facility] LAB MCHC 32.4 32.0 - 37.0 g/dL LAB HEMETOLOGY METHOD 09/18/2024 10:02 AM [facility] RDW 15.8(H) 11.0 - 15.0 % LAB HEMETOLOGY METHOD 09/18/2024 10:02 AM [facility] Platelets 118(L) 130 - 400 K/mcL LAB HEMETOLOGY METHOD 09/18/2024 10:02 AM [facility] MPV 11.3(H) 7.0 - 11.0 FL LAB HEMETOLOGY METHOD 09/18/2024 10:02 AM [facility] NRBC 0.0 <1.0 % LAB HEMETOLOGY METHOD 09/18/2024 10:02 AM [facility] NRBC Absolute 0.00 <0.10 K/mcL LAB HEMETOLOGY METHOD 09/18/2024 10:02 AM [facility] Neutrophils Relative 63.6 % LAB HEMETOLOGY METHOD 09/18/2024 10:02 AM [facility] Lymphocytes Relative 21.9 % LAB HEMETOLOGY METHOD 09/18/2024 10:02 AM [facility] Monocytes Relative 9.0 % LAB HEMETOLOGY METHOD 09/18/2024 10:02 AM [facility] Eosinophils Relative 4.0 % LAB HEMETOLOGY METHOD 09/18/2024 10:02 AM [facility] Basophils Relative 1.0 % LAB HEMETOLOGY METHOD 09/18/2024 10:02 AM [facility] Immature Granulocytes Relative 0.5 % LAB HEMETOLOGY METHOD 09/18/2024 10:02 AM [facility] Neutrophils Absolute 2.67 1.50 - 7.00 K/mcL LAB HEMETOLOGY METHOD 09/18/2024 10:02 AM [facility] Lymphocytes Absolute 0.92(L) 1.00 - 5.00 K/mcL LAB HEMETOLOGY METHOD 09/18/2024 10:02 AM [facility] Monocytes Absolute 0.38 0.20 - 1.00 K/mcL LAB HEMETOLOGY METHOD 09/18/2024 10:02 AM [facility] Eosinophils Absolute 0.17 0.00 - 0.50 K/mcL LAB HEMETOLOGY METHOD 09/18/2024 10:02 AM EDT [facility] Basophils Absolute 0.04 0.00 - 0.20 K/[facility] LAB HEMETOLOGY METHOD 09/18/2024 10:02 AM EDT [facility] Immature Granulocytes Absolute 0.02 0.00 - 0.03 K/[facility] LAB HEMETOLOGY METHOD 09/18/2024 10:02 AM EDT [facility] Blood Venous blood specimen / Unknown Venipuncture / Unknown 09/18/2024 6:03 AM EDT 09/18/2024 9:10 AM EDT Ny Gutiérrez MD LAB BLOOD ORDERABLES Final Res ult Performing Organization Address [facility]/ZIP Co de Phone Number [facility] [address] [place] [address], [place] [phone] * Activated partial thromboplastin time (09/18/2024 6:03 AM EDT) aPTT 27.7 24.1 - 39.3 sec LAB COAGULATION METHOD 09/18/2024 10:12 AM EDT [facility] Blood Venous blood specimen / Unknown Venipuncture / Unknown 09/18/2024 6:03 AM EDT 09/18/2024 9:10 AM EDT Ny Gutiérrez MD LAB BLOOD ORDERABLES Final Res ult [facility] [address] [place] [address], [place] [phone] * Prothrombin time with INR (09/18/2024 6:03 AM EDT) Protime 11.9 10.6 - 13.9 sec LAB COAGULATION METHOD 09/18/2024 10:12 AM EDT [facility] INR 0.9 LAB COAGULATION METHOD 09/18/2024 10:12 AM EDT [facility] Blood Venous blood specimen / Unknown Venipuncture / Unknown 09/18/2024 6:03 AM EDT 09/18/2024 9:10 AM EDT us Ny Gutiérrez MD LAB BLOOD ORDERABLES Final Res ult Performing Organization Address [facility]/ZIP Co de Phone Number [facility] [address] [place] [address], [place] [phone] * Lipase (09/18/2024 6:03 AM EDT) Pathologist [facility] Lipase 41 13 - 75 unit/L LAB CHEMISTRY METHOD 09/18/2024 10:43 AM EDT [facility] Blood Venous blood specimen / Unknown Venipuncture / Unknown 09/18/2024 6:03 AM EDT 09/18/2024 9:10 AM EDT us Ny Gutiérrez MD LAB BLOOD ORDERABLES Final Res ult Performing Organization Address [facility] de Phone Number [facility] [address] [place] [address], [place] [phone] * (ABNORMAL) Comprehensive metabolic panel (09/18/2024 6:03 AM EDT) Pathologist [facility] Sodium 142 133 - 145 mmol/L LAB CHEMISTRY METHOD 09/18/2024 10:43 AM EDT [facility] Potassium 5.1 3.5 - 5.5 mmol/L LAB CHEMISTRY METHOD 09/18/2024 10:43 AM EDT [facility] Chloride 108 96 - 110 mmol/L LAB CHEMISTRY METHOD 09/18/2024 10:43 AM EDT [facility] CO2 29 21 - 32 mmol/L LAB CHEMISTRY METHOD 09/18/2024 10:43 AM EDT [facility] Anion Gap 5 3 - 11 LAB CHEMISTRY METHOD 09/18/2024 10:43 AM [facility] Glucose 85 70 - 100 mg/dL LAB CHEMISTRY METHOD 09/18/2024 10:43 AM [facility] BUN 23 5 - 25 mg/dL LAB CHEMISTRY METHOD 09/18/2024 10:43 AM [facility] Creatinine 0.80 0.50 - 1.10 mg/dL LAB CHEMISTRY METHOD 09/18/2024 10:43 AM [facility] eGFR 76 >=60 mL/min/1. 73m2 LAB CHEMISTRY METHOD 09/18/2024 10:43 AM [facility] Comment:Calculation based on the Chronic Kidney Disease Epidemiology Collaboration (CKD-EPI) equation refit without adjustment for race. BUN/Creatinine Ratio 28.8 LAB CHEMISTRY METHOD 09/18/2024 10:43 AM [facility] Calcium 9.3 8.5 - 10.5 mg/dL LAB CHEMISTRY METHOD 09/18/2024 10:43 AM [facility] AST (SGOT) 19 10 - 42 unit/L LAB CHEMISTRY METHOD 09/18/2024 10:43 AM [facility] ALT (SGPT) 26 10 - 60 unit/L LAB CHEMISTRY METHOD 09/18/2024 10:43 AM [facility] Alkaline Phosphatase 164(H) 42 - 121 unit/L LAB CHEMISTRY METHOD 09/18/2024 10:43 AM [facility] Total Protein 5.7(L) 6.0 - 8.0 g/dL LAB CHEMISTRY METHOD 09/18/2024 10:43 AM [facility] Albumin 3.2 3.2 - 5.0 g/dL LAB CHEMISTRY METHOD 09/18/2024 10:43 AM [facility] Total Bilirubin 0.6 0.0 - 1.4 mg/dL LAB CHEMISTRY METHOD 09/18/2024 10:43 AM EDT [facility] Blood Venous blood specimen / Unknown Venipuncture / Unknown 09/18/2024 6:03 AM EDT 09/18/2024 9:10 AM EDT us Ny Gutiérrez MD LAB BLOOD ORDERABLES Final Res ult [facility] [address] [place] [address], documented in this encounter Visit Diagnoses Diagnosis Encounter for other general examination documented in this encounter Care Teams Retail Financial Analyst Relationship Specialty Start Date End Date Kailee Kessler MD [address] [place] [address] PCP - General 05/01/1999 documented as of this encounter
--- OUTSIDE RECORDS SUMMARY | 2025-05-12 11:00 | XMS_ITS | Encounter Summary ---
Author Organization [facility] Address [address] [place] [address] Phone Care Team Providers Care Airline Mechanic Name Role Phone Trey Kenney MD Primary Care Provider + Encounter Details Date Type Department Care Team (Late st Contact Info) Description 06/13/2024 Procedure Pass [facility], Ct Scan - [address] [address] Social History Tobacco Use Types Packs/Day Years [...] 06/13/2024 4:24 PM [place] RN * [place] Suicide Severity Rating Scale (Screener/Recent Self-Report) Question [...] on filedocumented in this encounter Care Teams Airline Mechanic Relationship Specialty Start Date End Date Trey Kenney MD [address] [place] [address] PCP - General Family Medicine 06/13/24 documented as of this encounter Additional Source Comments The information contained in this document represents components of the legal health record. It is not the complete legal health record.[facility]
--- OUTSIDE RECORDS SUMMARY | 2025-05-12 11:00 | XMS_ITS | Clinical Summary ---
Author Organization [facility] Address [address] [facility] [address] [place] [address] Phone Care Team Providers Care Coat Fitter Name Role Phone Trey Kenney MD Primary [...] (50+ y ears) (2 of 2 - PCV20 or PCV21) 03/10/2021 03/10/2020 INFLUENZA VACCINE (#1) 2025 03/10/2020 COVID-19 VACCINE (2 - 2024-2 6 season) 2025 10/06/2020 HEPATITIS A VACCINES Aged Out No long er eligible based on patient's age to complete this topic HIB VACCINES Aged Out No longer eligi ble based on patient's age to complete this topic IPV VACCINES Aged Out No longer eligi ble based on patient's age to complete this topic MENINGOCOCCAL VACCINES (ACWY) Aged Out No longer eligible based on patient's age to complete this topic MENINGOCOCCAL VACCINES (B) Aged Out N o longer eligible based on patient's age to complete this topic Medical Devices Not on file Insurance MEDICARE PART A & B [employer] CROSS MEDEX SUPPLEMENT MEDICARE PART A & B [employer] [place] [address] MEDICARE PART A & B [employer] MEDEX SUPPLEMENT MEDICARE PART A & B Member Subscriber Plan / Payer ( fective 2011-) Name:Lisa Pozo Member ID:[id number] Relation to Subscriber:Self Name:Lisa Pozo Subscriber ID:[id number] Payer ID:[id number] Group ID:Not on file Type:Medicare Address: [employer] [address] [place], [place] [phone] [employer] MEDEX SUPPLEMENT [employer] MEDEX SUPPLEMENT MEDICARE PART A & B [facility] MEDEX SUPPLEMENT MEDICARE PART A & B [employer] CROSS MEDEX SUPPLEMENT Member Subscriber Plan / Payer [facility]-Present) Name:Lisa Pozo Relation to Subscriber:Self Name:Lisa Pozo Payer ID:[id number] (NAIC) Type:Indemnity Address: [place] [address] [place] [address] MEDICARE PART A & B Member Subscriber Plan / Payer ([facility] 03/02/2011-Present) Name:Lisa Pozo Member ID:[id number] Relation to Subscriber:Self Name:Lisa Pozo Subscriber ID:[id number] Payer ID:[id number] Group ID:Not on file Type:Medicare Address: [employer] [address] [place] [phone] [employer] MEDEX SUPPLEMENT Member Subscriber Plan / Payer ([facility] 03/02/2011-Present) Name:Lisa Pozo Relation to Subscriber:Self Name:Lisa Pozo Payer ID:[id number] (NAIC) Type:Indemnity Address: [place] [address] [place] [address] MEDICARE PART A & B BLUE CROSS MEDEX SUPPLEMENT Care Teams Coat Fitter Relationship Specialty Start Date End Date Trey Kenney MD [address] [place] [phone] PCP - General Family Medicine 06/13/24 Additional Source Comments The information contained in this document represents components of the legal health record. It is not the complete legal health record.[facility]
--- OUTSIDE RECORDS SUMMARY | 2025-05-12 11:00 | XMS_ITS | Encounter Summary ---
Author Organization [facility] Address [address] [place] [address] Care Team Providers Care Mortgage Assistant Name Role Phone Kailee Kessler MD Primary Care Provider [phone] Encounter Details Date Type Department Care Team (Late st Contact Info) Description 09/03/2024 Lab Requisition [facility] - Main Lab [address] [facility] [place] [place] [address] Neelima Aldana MD [address] [place] [id number] Encounter for other general examination Social History [...] K/mcL LAB HEMETOLOGY METHOD 09/03/2024 11:07 AM [facility] RBC 4.20 3.80 - 4.80 M/mcL LAB HEMETOLOGY METHOD 09/03/2024 11:07 AM [facility] Hemoglobin 12.9 11.5 - 16.0 g/dL LAB HEMETOLOGY METHOD 09/03/2024 11:07 AM [facility] Hematocrit 39.9 35.0 - 47.0 % LAB HEMETOLOGY METHOD 09/03/2024 11:07 AM [facility] MCV 95.5 79.0 - 98.0 FL LAB HEMETOLOGY METHOD 09/03/2024 11:07 AM [facility] MCH 30.9 27.0 - 32.0 pcg LAB HEMETOLOGY METHOD 09/03/2024 11:07 AM [facility] MCHC 32.3 32.0 - 37.0 g/dL LAB HEMETOLOGY METHOD 09/03/2024 11:07 AM [facility] RDW 15.3(H) 11.0 - 15.0 % LAB HEMETOLOGY METHOD 09/03/2024 11:07 AM [facility] Platelets 110(L) 130 - 400 K/mcL LAB HEMETOLOGY METHOD 09/03/2024 11:07 AM [facility] MPV 11.5(H) 7.0 - 11.0 FL LAB HEMETOLOGY METHOD 09/03/2024 11:07 AM [facility] NRBC 0.0 <1.0 % LAB HEMETOLOGY METHOD 09/03/2024 11:07 AM [facility] NRBC Absolute 0.00 <0.10 K/mcL LAB HEMETOLOGY METHOD 09/03/2024 11:07 AM [facility] Neutrophils Relative 63.7 % LAB HEMETOLOGY METHOD 09/03/2024 11:07 AM [facility] Lymphocytes Relative 20.4 % LAB HEMETOLOGY METHOD 09/03/2024 11:07 AM [facility] Monocytes Relative 10.1 % LAB HEMETOLOGY METHOD 09/03/2024 11:07 AM [facility] Eosinophils Relative 4.5 % LAB HEMETOLOGY METHOD 09/03/2024 11:07 AM [facility] Basophils Relative 1.3 % LAB HEMETOLOGY METHOD 09/03/2024 11:07 AM [facility] Immature Granulocytes Relative 0.0 % LAB HEMETOLOGY METHOD 09/03/2024 11:07 AM [facility] Neutrophils Absolute 2.40 1.50 - 7.00 K/mcL LAB HEMETOLOGY METHOD 09/03/2024 11:07 AM [facility] Lymphocytes Absolute 0.77(L) 1.00 - 5.00 K/mcL LAB HEMETOLOGY METHOD 09/03/2024 11:07 AM [facility] Monocytes Absolute 0.38 0.20 - 1.00 K/mcL LAB HEMETOLOGY METHOD 09/03/2024 11:07 AM [facility] Eosinophils Absolute 0.17 0.00 - 0.50 K/mcL LAB HEMETOLOGY METHOD 09/03/2024 11:07 AM [facility] Basophils Absolute 0.05 0.00 - 0.20 K/mcL LAB HEMETOLOGY METHOD 09/03/2024 11:07 AM [facility] Immature Granulocytes Absolute 0.00 0.00 - 0.03 K/mcL LAB HEMETOLOGY METHOD 09/03/2024 11:[address] [facility] Blood Venous blood specimen / Unknown Venipuncture / Unknown 09/03/2024 5:58 AM EST 09/03/2024 10:30 AM EST Neelima Aldana MD LAB BLOOD ORDERABLES Final Resu lt Performing Organization Address City/[facility]/ZIP Co de Phone Number [facility] [address] [place] [address], [place] [phone] * Magnesium (09/03/2024 5:58 AM EST) Magnesium 2.1 1.9 - 2.6 mg/dL LAB CHEMISTRY METHOD 09/03/2024 12:15 PM [facility] Blood Venous blood specimen / Unknown Venipuncture / Unknown 09/03/2024 5:58 AM EST 09/03/2024 10:30 AM EST Neelima Aldana MD LAB BLOOD ORDERABLES Final Resu lt Performing Organization Address City/[facility]/ZIP Co de Phone Number [facility] [address] [place] [address], [place] [phone] * (ABNORMAL) Comprehensive metabolic panel (09/03/2024 5:58 AM EST) Sodium 142 133 - 145 mmol/L LAB CHEMISTRY METHOD 09/03/2024 12:17 PM [facility] Potassium 3.9 3.5 - 5.5 mmol/L LAB CHEMISTRY METHOD 09/03/2024 12:17 PM [facility] Chloride 107 96 - 110 mmol/L LAB CHEMISTRY METHOD 09/03/2024 12:17 PM [facility] CO2 28 21 - 32 mmol/L LAB CHEMISTRY METHOD 09/03/2024 12:17 PM [facility] Anion Gap 7 3 - 11 LAB CHEMISTRY METHOD 09/03/2024 12:17 PM [facility] Glucose 87 70 - 100 mg/dL LAB CHEMISTRY METHOD 09/03/2024 12:17 PM [facility] BUN 19 5 - 25 mg/dL LAB CHEMISTRY METHOD 09/03/2024 12:17 PM [facility] Creatinine 0.61 0.50 - 1.10 mg/dL LAB CHEMISTRY METHOD 09/03/2024 12:17 PM [facility] eGFR 92 >=60 mL/min/1. 73m2 LAB CHEMISTRY METHOD 09/03/2024 12:17 PM [facility] Comment:Calculation based on the Chronic Kidney Disease Epidemiology Collaboration (CKD-EPI) equation refit without adjustment for race. BUN/Creatinine Ratio 31.1 LAB CHEMISTRY METHOD 09/03/2024 12:17 PM [facility] Calcium 9.4 8.5 - 10.5 mg/dL LAB CHEMISTRY METHOD 09/03/2024 12:17 PM [facility] AST (SGOT) 29 10 - 42 unit/L LAB CHEMISTRY METHOD 09/03/2024 12:17 PM [facility] ALT (SGPT) 28 10 - 60 unit/L LAB CHEMISTRY METHOD 09/03/2024 12:17 PM [facility] Alkaline Phosphatase 96 42 - 121 unit/L LAB CHEMISTRY METHOD 09/03/2024 12:17 PM [facility] Total Protein 5.5(L) 6.0 - 8.0 g/dL LAB CHEMISTRY METHOD 09/03/2024 12:17 PM [facility] Albumin 3.1(L) 3.2 - 5.0 g/dL LAB CHEMISTRY METHOD 09/03/2024 12:17 PM [facility] Total Bilirubin 0.7 0.0 - 1.4 mg/dL LAB CHEMISTRY METHOD 09/03/2024 12:17 PM [facility] Blood Venous blood specimen / Unknown Venipuncture / Unknown 09/03/2024 5:58 AM EST 09/03/2024 10:30 AM EST us Neelima Aldana MD LAB BLOOD ORDERABLES Final Resu lt [facility] [address] [place] [address], documented in this encounter Visit Diagnoses Diagnosis Encounter for other general examination documented in this encounter Care Teams Mortgage Assistant Relationship Specialty Start Date End Date Kailee Kessler MD [address] [place] [address] PCP - General 05/01/1999 documented as of this encounter
--- OUTSIDE RECORDS SUMMARY | 2025-05-12 11:00 | XMS_ITS | Encounter Summary ---
Author Organization [facility] Address [address] [place] [address] Care Team Providers Care Truss Driver Helper Name Role Phone Kailee Kessler MD Primary Care Provider [phone] Encounter Details Date Type Department Care Team (Late st Contact Info) Description 08/30/2024 Lab Requisition [facility] - Main Lab 299 [facility] [place] [address] Neelima Aldana MD [address] [place] [id number] Encounter for other general examination Social History [...] K/mcL LAB HEMETOLOGY METHOD 08/30/2024 12:[address] [facility] RBC 4.20 3.80 - 4.80 M/mcL LAB HEMETOLOGY METHOD 08/30/2024 12:[address] [facility] Hemoglobin 13.0 11.5 - 16.0 g/dL LAB HEMETOLOGY METHOD 08/30/2024 12:[address] [facility] Hematocrit 41.0 35.0 - 47.0 % LAB HEMETOLOGY METHOD 08/30/2024 12:[address] [facility] MCV 97.2 79.0 - 98.0 FL LAB HEMETOLOGY METHOD 08/30/2024 12:[address] [facility] MCH 30.8 27.0 - 32.0 pcg LAB HEMETOLOGY METHOD 08/30/2024 12:[address] [facility] MCHC 31.7(L) 32.0 - 37.0 g/dL LAB HEMETOLOGY METHOD 08/30/2024 12:[address] [facility] RDW 14.8 11.0 - 15.0 % LAB HEMETOLOGY METHOD 08/30/2024 12:[address] [facility] Platelets 88(L) 130 - 400 K/mcL LAB HEMETOLOGY METHOD 08/30/2024 12:[address] [facility] Comment:reviewed by slide MPV 11.7(H) 7.0 - 11.0 FL LAB HEMETOLOGY METHOD 08/30/2024 12:[address] [facility] NRBC 0.0 <1.0 % LAB HEMETOLOGY METHOD 08/30/2024 12:[address] [facility] NRBC Absolute 0.00 <0.10 K/mcL LAB HEMETOLOGY METHOD 08/30/2024 12:[address] [facility] Neutrophils Relative 75.4 % LAB HEMETOLOGY METHOD 08/30/2024 12:[address] [facility] Lymphocytes Relative 12.9 % LAB HEMETOLOGY METHOD 08/30/2024 12:[address] [facility] Monocytes Relative 7.2 % LAB HEMETOLOGY METHOD 08/30/2024 12:[address] [facility] Eosinophils Relative 2.9 % LAB HEMETOLOGY METHOD 08/30/2024 12:[address] [facility] Basophils Relative 1.0 % LAB HEMETOLOGY METHOD 08/30/2024 12:[address] [facility] Immature Granulocytes Relative 0.6 % LAB HEMETOLOGY METHOD 08/30/2024 12:[address] [facility] Neutrophils Absolute 4.74 1.50 - 7.00 K/mcL LAB HEMETOLOGY METHOD 08/30/2024 12:[address] [facility] Lymphocytes Absolute 0.81(L) 1.00 - 5.00 K/mcL LAB HEMETOLOGY METHOD 08/30/2024 12:[address] [facility] Monocytes Absolute 0.45 0.20 - 1.00 K/mcL LAB HEMETOLOGY METHOD 08/30/2024 12:[address] [facility] Eosinophils Absolute 0.18 0.00 - 0.50 K/mcL LAB HEMETOLOGY METHOD 08/30/2024 12:[address] [facility] Basophils Absolute 0.06 0.00 - 0.20 K/mcL LAB HEMETOLOGY METHOD 08/30/2024 12:[address] [facility] Immature Granulocytes Absolute 0.04(H) 0.00 - 0.03 K/mcL LAB HEMETOLOGY METHOD 08/30/2024 12:16 PM EST [facility] Blood Venous blood specimen / Unknown Venipuncture / Unknown 08/30/2024 5:51 AM EST 08/30/2024 10:59 AM EST Neelima Aldana MD LAB BLOOD ORDERABLES Final Resu lt Performing Organization Address City/[facility]/ZIP Co de Phone Number [facility] [address] [place] [address], [place] [phone] * Magnesium (08/30/2024 5:51 AM EST) Pathologist [facility] Magnesium 2.2 1.9 - 2.6 mg/dL LAB CHEMISTRY METHOD 08/30/2024 12:23 PM EST [facility] Blood Venous blood specimen / Unknown Venipuncture / Unknown 08/30/2024 5:51 AM EST 08/30/2024 10:59 AM EST Neelima Aldana MD LAB BLOOD ORDERABLES Final Resu lt Performing Organization Address [facility]/ZIP Co de Phone Number [facility] [address] [place] [address], [place] [phone] * (ABNORMAL) Comprehensive metabolic panel (08/30/2024 5:51 AM EST) Pathologist [facility] Sodium 142 133 - 145 mmol/L LAB CHEMISTRY METHOD 08/30/2024 12:23 PM EST [facility] Potassium 4.5 3.5 - 5.5 mmol/L LAB CHEMISTRY METHOD 08/30/2024 12:23 PM EST [facility] Chloride 107 96 - 110 mmol/L LAB CHEMISTRY METHOD 08/30/2024 12:23 PM EST [facility] CO2 29 21 - 32 mmol/L LAB CHEMISTRY METHOD 08/30/2024 12:23 PM EST [facility] Anion Gap 6 3 - 11 LAB CHEMISTRY METHOD 08/30/2024 12:[address] [facility] Glucose 85 70 - 100 mg/dL LAB CHEMISTRY METHOD 08/30/2024 12:[address] [facility] BUN 19 5 - 25 mg/dL LAB CHEMISTRY METHOD 08/30/2024 12:[address] [facility] Creatinine 0.74 0.50 - 1.10 mg/dL LAB CHEMISTRY METHOD 08/30/2024 12:[address] [facility] eGFR 83 >=60 mL/min/1. 73m2 LAB CHEMISTRY METHOD 08/30/2024 12:[address] [facility] Comment:Calculation based on the Chronic Kidney Disease Epidemiology Collaboration (CKD-EPI) equation refit without adjustment for race. BUN/Creatinine Ratio 25.7 LAB CHEMISTRY METHOD 08/30/2024 12:[address] [facility] Calcium 8.9 8.5 - 10.5 mg/dL LAB CHEMISTRY METHOD 08/30/2024 12:[address] [facility] AST (SGOT) 29 10 - 42 unit/L LAB CHEMISTRY METHOD 08/30/2024 12:[address] [facility] ALT (SGPT) 31 10 - 60 unit/L LAB CHEMISTRY METHOD 08/30/2024 12:[address] [facility] Alkaline Phosphatase 100 42 - 121 unit/L LAB CHEMISTRY METHOD 08/30/2024 12:[address] [facility] Total Protein 5.7(L) 6.0 - 8.0 g/dL LAB CHEMISTRY METHOD 08/30/2024 12:[address] [facility] Albumin 3.2 3.2 - 5.0 g/dL LAB CHEMISTRY METHOD 08/30/2024 12:[address] [facility] Total Bilirubin 1.0 0.0 - 1.4 mg/dL LAB CHEMISTRY METHOD 08/30/2024 12:[address] [facility] Blood Venous blood specimen / Unknown Venipuncture / Unknown 08/30/2024 5:51 AM EST 08/30/2024 10:59 AM EST us Neelima Aldana MD LAB BLOOD ORDERABLES Final Resu lt [facility] [address] [place] [address], documented in this encounter Visit Diagnoses Diagnosis Encounter for other general examination documented in this encounter Care Teams Truss Driver Helper Relationship Specialty Start Date End Date Kailee Kessler MD [address] [place] [address] PCP - General 05/01/1999 documented as of this encounter
--- OUTSIDE RECORDS SUMMARY | 2025-05-12 11:00 | XMS_ITS | Clinical Summary ---
Author Organization [address] [facility] Address [address] [place] [address] Phone Care Team Providers Care Set Up Mechanic Coil Winding Machines Name Role Phone Kailee Kessler MD Primary Care Provider [phone] Social History Tobacco Use Types Packs/Day Years [...] Depression Screening 07/02/2024 COVID-19 Vaccine ( - 2024-2 6 season) 2025 Influenza Vaccine (#1) 2025 HIB [...] age to complete this topic Insurance MEDICARE [facility] Care Teams Set Up Mechanic Coil Winding Machines Relationship Specialty Start Date End Date Kailee Kessler MD [address] [place] [address] PCP - General 05/01/1999
--- OUTSIDE RECORDS SUMMARY | 2025-05-12 11:00 | XMS_ITS | Encounter Summary ---
Author Organization [facility] Address [address] [place] [address] Care Team Providers Care Syrup Shed Supervisor Name Role Phone Kailee Kessler MD Primary Care Provider Encounter Details Date Type Department Care Team (Late st Contact Info) Description 09/13/2024 Lab Requisition [facility] - Main Lab 299 [facility] [place] [address] Ny Gutiérrez MD [address] [place] [id number] Encounter for other general examination Social History [...] K/mcL LAB HEMETOLOGY METHOD 09/13/2024 10:14 AM [facility] RBC 4.60 3.80 - 4.80 M/mcL LAB HEMETOLOGY METHOD 09/13/2024 10:14 AM [facility] Hemoglobin 14.4 11.5 - 16.0 g/dL LAB HEMETOLOGY METHOD 09/13/2024 10:14 AM [facility] Hematocrit 43.9 35.0 - 47.0 % LAB HEMETOLOGY METHOD 09/13/2024 10:14 AM [facility] MCV 94.8 79.0 - 98.0 FL LAB HEMETOLOGY METHOD 09/13/2024 10:14 AM [facility] MCH 31.1 27.0 - 32.0 pcg LAB HEMETOLOGY METHOD 09/13/2024 10:14 AM [facility] MCHC 32.8 32.0 - 37.0 g/dL LAB HEMETOLOGY METHOD 09/13/2024 10:14 AM [facility] RDW 15.9(H) 11.0 - 15.0 % LAB HEMETOLOGY METHOD 09/13/2024 10:14 AM [facility] Platelets 105(L) 130 - 400 K/mcL LAB HEMETOLOGY METHOD 09/13/2024 10:14 AM [facility] MPV 11.5(H) 7.0 - 11.0 FL LAB HEMETOLOGY METHOD 09/13/2024 10:14 AM [facility] NRBC 0.0 <1.0 % LAB HEMETOLOGY METHOD 09/13/2024 10:14 AM [facility] NRBC Absolute 0.00 <0.10 K/mcL LAB HEMETOLOGY METHOD 09/13/2024 10:14 AM [facility] Neutrophils Relative 65.2 % LAB HEMETOLOGY METHOD 09/13/2024 10:14 AM [facility] Lymphocytes Relative 22.5 % LAB HEMETOLOGY METHOD 09/13/2024 10:14 AM [facility] Monocytes Relative 7.9 % LAB HEMETOLOGY METHOD 09/13/2024 10:14 AM [facility] Eosinophils Relative 3.3 % LAB HEMETOLOGY METHOD 09/13/2024 10:14 AM [facility] Basophils Relative 0.8 % LAB HEMETOLOGY METHOD 09/13/2024 10:14 AM [facility] Immature Granulocytes Relative 0.3 % LAB HEMETOLOGY METHOD 09/13/2024 10:14 AM [facility] Neutrophils Absolute 2.55 1.50 - 7.00 K/mcL LAB HEMETOLOGY METHOD 09/13/2024 10:14 AM [facility] Lymphocytes Absolute 0.88(L) 1.00 - 5.00 K/mcL LAB HEMETOLOGY METHOD 09/13/2024 10:14 AM [facility] Monocytes Absolute 0.31 0.20 - 1.00 K/mcL LAB HEMETOLOGY METHOD 09/13/2024 10:14 AM [facility] Eosinophils Absolute 0.13 0.00 - 0.50 K/mcL LAB HEMETOLOGY METHOD 09/13/2024 10:14 AM [facility] Basophils Absolute 0.03 0.00 - 0.20 K/mcL LAB HEMETOLOGY METHOD 09/13/2024 10:14 AM [facility] Immature Granulocytes Absolute 0.01 0.00 - 0.03 K/mcL LAB HEMETOLOGY METHOD 09/13/2024 10:14 AM EDT [facility] Blood Venous blood specimen / Unknown Venipuncture / Unknown 09/13/2024 5:38 AM EDT 09/13/2024 8:57 AM EDT Ny Gutiérrez MD LAB BLOOD ORDERABLES Final Res ult Performing Organization Address City/[facility]/ZIP Co de Phone Number [facility] [address] [place] [address], [place] [phone] * Magnesium (09/13/2024 5:38 AM EDT) Magnesium 2.2 1.9 - 2.6 mg/dL LAB CHEMISTRY METHOD 09/13/2024 10:32 AM EDT [facility] Blood Venous blood specimen / Unknown Venipuncture / Unknown 09/13/2024 5:38 AM EDT 09/13/2024 8:57 AM EDT Ny Gutiérrez MD LAB BLOOD ORDERABLES Final Res ult Performing Organization Address [facility]/ZIP Co de Phone Number [facility] [address] [place] [address], [place] [phone] * (ABNORMAL) Comprehensive metabolic panel (09/13/2024 5:38 AM EDT) Sodium 137 133 - 145 mmol/L LAB CHEMISTRY METHOD 09/13/2024 10:32 AM EDT [facility] Potassium 3.9 3.5 - 5.5 mmol/L LAB CHEMISTRY METHOD 09/13/2024 10:32 AM EDT [facility] Chloride 101 96 - 110 mmol/L LAB CHEMISTRY METHOD 09/13/2024 10:32 AM EDT [facility] CO2 30 21 - 32 mmol/L LAB CHEMISTRY METHOD 09/13/2024 10:32 AM [facility] Anion Gap 6 3 - 11 LAB CHEMISTRY METHOD 09/13/2024 10:32 AM [facility] Glucose 77 70 - 100 mg/dL LAB CHEMISTRY METHOD 09/13/2024 10:32 AM [facility] BUN 17 5 - 25 mg/dL LAB CHEMISTRY METHOD 09/13/2024 10:32 AM [facility] Creatinine 0.69 0.50 - 1.10 mg/dL LAB CHEMISTRY METHOD 09/13/2024 10:32 AM [facility] eGFR 89 >=60 mL/min/1. 73m2 LAB CHEMISTRY METHOD 09/13/2024 10:32 AM [facility] Comment:Calculation based on the Chronic Kidney Disease Epidemiology Collaboration (CKD-EPI) equation refit without adjustment for race. BUN/Creatinine Ratio 24.6 LAB CHEMISTRY METHOD 09/13/2024 10:32 AM [facility] Calcium 8.9 8.5 - 10.5 mg/dL LAB CHEMISTRY METHOD 09/13/2024 10:32 AM [facility] AST (SGOT) 26 10 - 42 unit/L LAB CHEMISTRY METHOD 09/13/2024 10:32 AM [facility] ALT (SGPT) 32 10 - 60 unit/L LAB CHEMISTRY METHOD 09/13/2024 10:32 AM [facility] Alkaline Phosphatase 150(H) 42 - 121 unit/L LAB CHEMISTRY METHOD 09/13/2024 10:32 AM [facility] Total Protein 5.9(L) 6.0 - 8.0 g/dL LAB CHEMISTRY METHOD 09/13/2024 10:32 AM [facility] Albumin 3.2 3.2 - 5.0 g/dL LAB CHEMISTRY METHOD 09/13/2024 10:32 AM [facility] Total Bilirubin 0.8 0.0 - 1.4 mg/dL LAB CHEMISTRY METHOD 09/13/2024 10:32 AM EDT [facility] Blood Venous blood specimen / Unknown Venipuncture / Unknown 09/13/2024 5:38 AM EDT 09/13/2024 8:57 AM EDT us Ny Gutiérrez MD LAB BLOOD ORDERABLES Final Res ult [facility] [address] [place] [address], [place] [phone] documented in this encounter Visit Diagnoses Diagnosis Encounter for other general examination documented in this encounter Care Teams Syrup Shed Supervisor Relationship Specialty Start Date End Date Kailee Kessler MD [address] [place] [address] PCP - General 05/01/1999 documented as of this encounter
== END 2025-05-12 09:46 | disposition home or self-care (01) ==
LOC: HO.XRAY 09:45
PROVIDERS: PCP Family Medicine; Visit Provider Hospitalist
DX: K21.9 Gastro-esophageal reflux disease without esophagitis (principal)
CPT/HCPCS: 74221

== ENCOUNTER → 2025-05-12 09:49 | Outpatient (BNV) | payer MEDICARE, SELFPAY | PROVIDERS: PCP Family Medicine; Visit Provider Radiology Diagnostic Ultrasound | DX: K21.9 Gastro-esophageal reflux disease without esophagitis (principal); K44.9 Diaphragmatic hernia without obstruction or gangrene | CPT/HCPCS: 74221 ==